=== PATIENT | male | born 1960 | race Two or more races ===

== ENCOUNTER → 2016-12-18 | Outpatient (CLI) | payer OTHER ==
[~2016-12-18] MED LIST: MIDAZOLAM HCL 5 MG/ML-1ML VIAL ONE; SODIUM CHLORIDE LOCK 0 ML ONE; diphenhdrAMINE HCL 50 MG/1 ML VL ONE; fentaNYL CITRATE 100 MCG/2 ML VL ONE
== END | disposition home or self-care (01) ==
LOC: Rad HDHVI 08:17
PROVIDERS: ATTEND Internal Medicine Cardiovascular Disease
DX: I48.0 Paroxysmal atrial fibrillation (principal); D64.9 Anemia, unspecified; I11.0 Hypertensive heart disease with heart failure; I50.9 Heart failure, unspecified; E83.42 Hypomagnesemia; R42 Dizziness and giddiness
CPT/HCPCS: 93306

== ENCOUNTER → 2019-02-17 | Outpatient (CLI) | payer OTHER ==
[~2019-02-17] MED LIST changes: +METOPROLOL SUCCINATE XL 50 MG TAB PO ONE; -MIDAZOLAM HCL 5 MG/ML-1ML VIAL ONE; +SODIUM CHLORIDE 0.9% 250 ML IV ONE; -SODIUM CHLORIDE LOCK 0 ML ONE; -diphenhdrAMINE HCL 50 MG/1 ML VL ONE; -fentaNYL CITRATE 100 MCG/2 ML VL ONE
[2019-02-17 16:55] VITALS: BP 127/86
--- NOTE | 2019-02-17 16:55 | NUR ---
EKG EKG COMPLETED SENT TO MD NEWSOME/ PT GIVEN METOPROLOL 50 MG PO GIVEN WITH NEW PRESCRIPTION CALLED IN TO JOSI DUARTE AND TAMMY NICE. EKG SHOWED AFIB. ELIQUIS ALSO GIVEN PTS HOME MED.
--- NOTE | 2019-02-17 16:55 | NUR ---
IV insertion IV access obtained, via clean sterile technique by inserting 18 gauge catheter at after 1 attempt(s). IV secured properly. No trauma to site. Patient tolerated procedure well.
--- NOTE | 2019-02-17 16:55 | NUR ---
CHF PT CAME THROUGH FRONT LOBBY COMPLAINING OF FAST HEART RATE/ A/O X 4 JUST LEFT THE GYM. DENIES CHEST PAIN MD NEWSOME UPDATED ORDERS RECEIVED AND NOTED.
[2019-02-17 18:05] VITALS: BP 119/89
--- NOTE | 2019-02-17 18:05 | NUR ---
STATUS REPEAT EKG DONE HR 138 PT FEELS BETTER POST 250 NS HYDRATION REVIEWED HOME MEDICATIONS, PT VERBALIZED UNDERSTANDING
--- NOTE | 2019-02-17 18:06 | NUR ---
Discharge Instructions See e-MAR for any mediations given with this visit. Patient education given on disease process. Patient verbalized understanding. Previous labs reviewed. Patient discharged in stable condition with after care instructions and follow up appointment. MEDICATIONS NS 250 IV METOPROLOL PO ELIQUIS PO PT INSTRUCTED TO HOLD FLOMAX THIS EVENING AND HOLD CIALIS ON SUNDAY UNTIL MD NEWSOME SEES PT AT HIS APPOINTMENT. PT VERBALIZED UNDERSTANDING.
== END | disposition home or self-care (01) ==
LOC: CHF HDHVI 16:58
PROVIDERS: ATTEND Internal Medicine Cardiovascular Disease
DX: E86.0 Dehydration (principal); I11.0 Hypertensive heart disease with heart failure; I50.9 Heart failure, unspecified; I48.0 Paroxysmal atrial fibrillation; E78.00 Pure hypercholesterolemia, unspecified; E11.9 Type 2 diabetes mellitus without complications; E03.9 Hypothyroidism, unspecified
CPT/HCPCS: 93005; 96360; G0463; J7050

== ENCOUNTER → 2019-04-21 | Outpatient (CLI) | payer OTHER ==
[~2019-04-21] MED LIST changes: +APIX5TAB PO; +DYA375C PO; -METOPROLOL SUCCINATE XL 50 MG TAB PO ONE; -SODIUM CHLORIDE 0.9% 250 ML IV ONE; +SOTA80TA PO; +TADA5TAB11 PO; +TAM04C PO; +TEMA15CA91 PO; +VORT10TA PO
[2019-04-21 10:52] VITALS: BP 123/75
--- NOTE | 2019-04-21 11:06 | NUR ---
Pre-Op Discharge Summary: See e-MAR for any medications given for this visit. Pre-op orders received and carried out per MD of EKG, LABS and chest xrays. Patient given a copy of EKG with instructions to go to [facility] out patient for further follow up care.
[2019-04-21 11:42] VITALS: BP 131/78
[2019-04-21 11:53] LABS: Basophils # (auto) 0 uL; Basophils % (auto) 0.6 % (0.0-2.0); Eosinophils # (auto) 0.1 uL; Eosinophils % (auto) 1.5 % (0.0-7.0); Hematocrit 50.6 % (41.0-53.0); Hemoglobin 17.4 g/dL (13.5-17.5); Lymphocytes % (auto) 29.7 % (10.0-50.0); Mean Corpuscular Hemoglobin 29.9 pg (28.0-32.0); Mean Corpuscular Hgb Conc. 34.4 g/dL (32.0-36.0); Mean Corpuscular Volume 86.8 fL (80.0-100.0); Monocytes # (auto) 0.5 uL; Monocytes % (auto) 8.1 % (0.0-12.0); Neutrophils # (auto) 4.1 uL; Neutrophils % (auto) 60.1 % (37.0-80.0); Nucleated Red Blood Cells % 0.3 %; Platelet Count (auto) 199 10^3/uL (140-450); Red Blood Cells 5.83 10^6/uL (4.5-5.90); White Blood Cell 6.7 10^3/uL (4.4-10.8)
[2019-04-21 12:10] LABS: INR 1.01 (0.9-1.15); Partial Thromboplastin Time 29.9 sec (23.64-32.05)
[2019-04-21 12:26] LABS: BUN/Creatinine Ratio 11.1; Calcium 8.7 mg/dL (8.5-10.1)
[2019-04-21 14:11] LABS: Potassium 2.9 mmol/L (3.5-5.1)
== END | disposition home or self-care (01) ==
LOC: Rad HDHVI 10:08
PROVIDERS: ATTEND Internal Medicine Cardiovascular Disease
DX: Z01.812 Encounter for preprocedural laboratory examination (principal)
CPT/HCPCS: 36415; 71046; 80048; 85025; 85610; 85730

== ENCOUNTER 2019-04-24 07:26 | Day surgery (SDC) | payer OTHER ==
[~2019-04-24] VITALS: Ht 180.3 cm; Wt 105.2 kg
[2019-04-24] MEDS ORDERED: LIDOCAINE 2%HCL (LOCAL ANESTH.) INJ 20ML MDV ONE (10:50)
[2019-04-24] MEDS ORDERED: IOHEXOL 350 MG/ML 100ML IJ ONE (10:50)
[2019-04-24] MEDS ORDERED: SODIUM CHL 0.9% 50 ML ONE (10:56)
[2019-04-24] MEDS ORDERED: fentaNYL CITRATE 100 MCG/2 ML VL ONE (10:56)
[2019-04-24] MEDS ORDERED: ANGIOMAX 250 MG VIAL IV ONE (10:56)
[2019-04-24] MEDS ORDERED: MIDAZOLAM HCL 1MG/1ML-2 ML VIAL ONE (10:56)
[2019-04-24] MEDS ORDERED: ONDANSETRON HCL 4 MG/2 ML VIAL IV PRN (13:00)
[2019-04-24] MEDS ORDERED: ACETAMINOPHEN 500 MG TAB PO PRN (13:00)
[2019-04-24] MEDS ORDERED: SODIUM CHL 0.9% 500 ML IV ONE (13:00)
[2019-04-24] MEDS ORDERED: HYDROcodone-ACET 5/325MG TAB PO PRN (13:00)
== END 2019-04-24 14:15 | disposition home or self-care (01) ==
LOC: CATH 07:26
PROVIDERS: ATTEND Internal Medicine Cardiovascular Disease
DX: R07.89 Other chest pain (principal); R06.02 Shortness of breath; I48.0 Paroxysmal atrial fibrillation; I10 Essential (primary) hypertension; Z79.899 Other long term (current) drug therapy
CPT/HCPCS: 93460; C1751; C1760; C1894; J1644; J2250; J3010; Q9967; 99152

== ENCOUNTER → 2019-08-25 | Outpatient (CLI) | payer OTHER | END | disposition home or self-care (01) | LOC: LAB 10:35 | PROVIDERS: ATTEND Internal Medicine Cardiovascular Disease | DX: E29.1 Testicular hypofunction (principal) | CPT/HCPCS: 36415; 84403 ==

== ENCOUNTER 2021-06-12 13:19 | Inpatient (IN) | payer OTHER ==
[~2021-06-12] VITALS: Ht 180.3 cm; Wt 110.9 kg
[~2021-06-12 13:19] MED LIST changes: -DYA375C PO; +TEMA15CA2 PO; -TEMA15CA91 PO; +TRIA37.56 PO
[2021-06-12] MEDS ORDERED: dilTIAZem 25 MG/5 ML VIAL IV ONE ×3 (13:42→18:00)
[2021-06-12] MEDS ORDERED: SODIUM CHLORIDE 0.9% 1,000 ML IV ONE (13:45)
[2021-06-12] MEDS ORDERED: ASPirin 81 mg TAB PO ONE (13:45)
[2021-06-12] MEDS ORDERED: SODIUM CHLORIDE 0.9% 1,000 ML IVB ONE (13:45)
[2021-06-12 14:04] LABS: Basophils # (auto) 0.1 10 ^3/uL (0-0.2); Basophils % (auto) 1.3 % (0.0-2.0); Eosinophils # (auto) 0.1 10 ^3/uL (0-0.8); Hematocrit 52.3 % (41.0-53.0); Hemoglobin 17.6 g/dL (13.5-17.5); Lymphocytes # (auto) 1.8 10 ^3/uL (0.4-5.4); Lymphocytes % (auto) 23.7 % (10.0-50.0); Mean Corpuscular Hemoglobin 29.9 pg (28.0-32.0); Mean Corpuscular Hgb Conc. 33.7 g/dL (32.0-36.0); Mean Corpuscular Volume 88.9 fL (80.0-100.0); Monocytes # (auto) 0.5 10 ^3/uL (0-1.3); Monocytes % (auto) 6.3 % (0.0-12.0); Neutrophils # (auto) 5.2 10 ^3/uL (1.6-8.6); Neutrophils % (auto) 67.7 % (37.0-80.0); Nucleated Red Blood Cells % 0.1 %; Red Blood Cells 5.88 10^6/uL (4.5-5.90); Red Cell Distribution Width 15.1 % (11.8-14.3); White Blood Cell 7.7 10^3/uL (4.4-10.8)
[2021-06-12 14:21] LABS: Albumin 3.9 g/dL (3.4-5.0); Calcium 9.3 mg/dL (8.5-10.1); Magnesium 2.7 mg/dL (1.6-2.6); Potassium 4.1 mmol/L (3.5-5.1)
[2021-06-12 14:26] LABS: Bilirubin, Total 1.1 mg/dL (0.2-1.0); Total Protein 7.2 g/dL (6.4-8.2)
[2021-06-12 14:40] LABS: INR 1.18 (0.9-1.15); Partial Thromboplastin Time 32.8 sec (23.6-33.0)
[2021-06-12 14:59] LABS: Urine Bacteria NONE SEEN /hpf (None Seen); Urine Blood Negative /uL (Negative); Urine WBC 1 /hpf (0 - 3)
[2021-06-12] MEDS ORDERED: IOHEXOL 350 MG/ML 100ML IJ ONE (15:43)
[2021-06-12] MEDS ORDERED: AMIODARONE HCL 150 MG in D5W 5% 100 ML IV ONE (16:00)
[2021-06-12] MEDS ORDERED: LORazepam 0.5 MG TAB PO ONE (16:00)
[2021-06-12] MEDS ORDERED: AMIODARONE HCL (50 MG/ ML) 3 ML VIAL IV ONE (16:05)
[2021-06-12] MEDS ORDERED: AMIODARONE 450mg/250ml AE 250 ML IV ONE (16:06)
[2021-06-12] MEDS ORDERED: AMIODARONE 450mg/250ml AE 250 ML IV SCH (16:15)
[2021-06-12] MEDS ORDERED: NITROGLYCERIN 0.4 MG SL TAB SL PRN (17:15)
[2021-06-12] MEDS ORDERED: MORPHINE SULFATE INJECTION 2 MG/ML SYRG IV PRN (17:15)
[2021-06-12] MEDS ORDERED: MORPHINE SULFATE 4 MG/ML SYR/VIAL IV PRN (17:15)
[2021-06-12] MEDS: SODIUM CHLORIDE 0.9% 1,000 ML IV SCH (17:49)
[2021-06-12] MEDS ORDERED: TAMSULOSIN HYDROCHLORIDE 0.4 MG CAP PO ONE (18:00)
[2021-06-12] MEDS: AMIODARONE 450mg/250ml AE 250 ML IV SCH (22:17)
[2021-06-12] MEDS: APIXABAN 5 MG TAB PO SCH (22:21)
[2021-06-13] MEDS ORDERED: AMIODARONE HCL 75 MG in D5W 5% 100 ML IV ONE ×2
[2021-06-13] MEDS ORDERED: AMIODARONE HCL (50 MG/ ML) 3 ML VIAL IV ONE (00:12)
[2021-06-13] MEDS: HYDROcodone-ACET 5/325MG TAB PO PRN ×2 (05:48→14:09)
[2021-06-13 05:49] LABS: Basophils # (auto) 0.1 10 ^3/uL (0-0.2); Basophils % (auto) 0.8 % (0.0-2.0); Eosinophils # (auto) 0.1 10 ^3/uL (0-0.8); Hematocrit 48.5 % (41.0-53.0); Hemoglobin 16.4 g/dL (13.5-17.5); Lymphocytes # (auto) 1.8 10 ^3/uL (0.4-5.4); Lymphocytes % (auto) 24.6 % (10.0-50.0); Mean Corpuscular Hgb Conc. 33.8 g/dL (32.0-36.0); Mean Corpuscular Volume 88.8 fL (80.0-100.0); Monocytes # (auto) 0.4 10 ^3/uL (0-1.3); Monocytes % (auto) 6.1 % (0.0-12.0); Neutrophils # (auto) 4.9 10 ^3/uL (1.6-8.6); Neutrophils % (auto) 67.5 % (37.0-80.0); Nucleated Red Blood Cells % 0.1 %; Red Blood Cells 5.46 10^6/uL (4.5-5.90); White Blood Cell 7.3 10^3/uL (4.4-10.8)
[2021-06-13 06:24] LABS: Albumin 3.5 g/dL (3.4-5.0); BUN/Creatinine Ratio 11.9; Bilirubin, Total 1.3 mg/dL (0.2-1.0); Calcium 8.7 mg/dL (8.5-10.1); Total Protein 6.5 g/dL (6.4-8.2)
[2021-06-13] MEDS: SOTALOL HCL 80 MG TAB PO SCH (09:35)
[2021-06-13] MEDS: APIXABAN 5 MG TAB PO SCH ×2 (09:35→21:22)
[2021-06-13] MEDS: SODIUM CHLORIDE 0.9% 1,000 ML IV SCH (09:55)
[2021-06-13] MEDS ORDERED: ENOXAPARIN SOD 40 MG/0.4 ML SYRINGE SC SCH (10:00)
[2021-06-13] MEDS ORDERED: NITROGLYCERIN 0.4 MG SL TAB SL PRN (11:00)
[2021-06-13] MEDS ORDERED: MORPHINE SULFATE INJECTION 2 MG/ML SYRG IV PRN (11:00)
[2021-06-13] MEDS ORDERED: SOTALOL HCL 80 MG TAB PO ONE (11:00)
[2021-06-13] MEDS: AMIODARONE 450mg/250ml AE 250 ML IV SCH (13:15)
[2021-06-13] MEDS ORDERED: METOPROLOL TARTRATE 50 MG TAB PO ONE (15:16)
[2021-06-13] MEDS: ACETAMINOPHEN 325 MG TAB PO PRN (19:05)
[2021-06-13 19:54] VITALS: BP 120/86
[2021-06-13 21:56] VITALS: BP 126/94
[2021-06-13] MEDS ORDERED: TEMAZEPAM 15 MG CAP PO PRN (23:45)
[2021-06-14] MEDS: SODIUM CHLORIDE 0.9% 1,000 ML IV SCH ×2 (02:35→19:15)
[2021-06-14 05:25] VITALS: BP 125/64
[2021-06-14 08:00] VITALS: BP 115/86
[2021-06-14 08:48] VITALS: BP 115/86
[2021-06-14] MEDS: SOTALOL HCL 80 MG TAB PO SCH ×3 (10:39→22:00)
[2021-06-14] MEDS: APIXABAN 5 MG TAB PO SCH ×2 (10:39→22:01)
[2021-06-14 13:00] VITALS: BP 113/70
[2021-06-14] MEDS: HYDROcodone-ACET 5/325MG TAB PO PRN (15:12)
[2021-06-14 17:00] VITALS: BP 112/77
[2021-06-14 22:00] VITALS: BP 138/107
[2021-06-14] MEDS: TAMSULOSIN HYDROCHLORIDE 0.4 MG CAP PO SCH (22:01)
[2021-06-14] MEDS: ACETAMINOPHEN 325 MG TAB PO PRN (23:22)
[2021-06-15 05:00] VITALS: BP 105/58
[2021-06-15 06:00] VITALS: BP 103/85
[2021-06-15 08:18] VITALS: BP 103/85
[2021-06-15] MEDS: ACETAMINOPHEN 325 MG TAB PO PRN (08:49)
[2021-06-15] MEDS: TAMSULOSIN HYDROCHLORIDE 0.4 MG CAP PO SCH (10:21)
[2021-06-15] MEDS: APIXABAN 5 MG TAB PO SCH (10:21)
[2021-06-15] MEDS: SOTALOL HCL 80 MG TAB PO SCH (10:22)
[2021-06-15 12:50] VITALS: BP 103/85
[2021-06-15] MEDS: SODIUM CHLORIDE 0.9% 1,000 ML IV SCH (12:54)
[2021-06-15 17:45] VITALS: BP 112/77
[2021-06-15 19:25] VITALS: BP 112/77
[2021-06-15] MEDS ORDERED: SOTA80TA PO ×2 (20:00→20:22)
== END 2021-06-15 21:00 | disposition home or self-care (01) | DRG 309 ==
LOC: ER 13:19 → TELE 17:07 → TELE-CENTR 06-13 18:36
PROVIDERS: ADMIT Internal Medicine; ATTEND Internal Medicine Cardiovascular Disease
DX: I48.91 Unspecified atrial fibrillation (principal); D68.59 Other primary thrombophilia; I47.1 Supraventricular tachycardia; F41.9 Anxiety disorder, unspecified; R79.89 Other specified abnormal findings of blood chemistry; Z20.822 Contact with and (suspected) exposure to COVID-19; I10 Essential (primary) hypertension; Z79.01 Long term (current) use of anticoagulants; Z79.899 Other long term (current) drug therapy
CPT/HCPCS: 36415; 71275; 80053; 81001; 83735; 83880; 84443; 84484; 85025; 85379; 85610; 85730; 93005; 93306; 96361; 96365; 96375; 96376; G0378; J7060

== ENCOUNTER 2021-06-17 09:20 | Emergency (ER) | payer OTHER ==
[~2021-06-17] VITALS: Ht 180.3 cm; Wt 107.0 kg
[2021-06-17] MEDS ORDERED: LACTATED RINGER'S 1,000 ML IV ONE (09:45)
[2021-06-17] MEDS ORDERED: dilTIAZem 25 MG/5 ML VIAL IV ONE ×2 (09:49→10:00)
[2021-06-17] MEDS ORDERED: dilTIAZem HCL 50 MG/10 ML VIAL IV ONE (09:49)
[2021-06-17] MEDS ORDERED: dilTIAZem 120MG ER CAP PO ONE (10:00)
[2021-06-17 10:27] LABS: Albumin 3.5 g/dL (3.4-5.0); Calcium 8.7 mg/dL (8.5-10.1); Magnesium 2.6 mg/dL (1.6-2.6); Potassium 4.4 mmol/L (3.5-5.1)
[2021-06-17 10:32] LABS: Bilirubin, Total 1.3 mg/dL (0.2-1.0); Total Protein 7.1 g/dL (6.4-8.2)
[2021-06-17 10:41] LABS: Basophils # (auto) 0.1 10 ^3/uL (0-0.2); Basophils % (auto) 1.1 % (0.0-2.0); Eosinophils # (auto) 0.1 10 ^3/uL (0-0.8); Eosinophils % (auto) 0.9 % (0.0-7.0); Hematocrit 51.8 % (41.0-53.0); Hemoglobin 17.1 g/dL (13.5-17.5); Lymphocytes # (auto) 1.6 10 ^3/uL (0.4-5.4); Lymphocytes % (auto) 20.3 % (10.0-50.0); Mean Corpuscular Hemoglobin 29.7 pg (28.0-32.0); Mean Corpuscular Hgb Conc. 33.1 g/dL (32.0-36.0); Mean Corpuscular Volume 89.9 fL (80.0-100.0); Monocytes # (auto) 0.3 10 ^3/uL (0-1.3); Monocytes % (auto) 3.9 % (0.0-12.0); Neutrophils # (auto) 5.8 10 ^3/uL (1.6-8.6); Neutrophils % (auto) 73.8 % (37.0-80.0); Nucleated Red Blood Cells % 0.2 %; Red Blood Cells 5.76 10^6/uL (4.5-5.90); Red Cell Distribution Width 14.9 % (11.8-14.3); White Blood Cell 7.9 10^3/uL (4.4-10.8)
[2021-06-17 10:57] LABS: INR 1.22 (0.9-1.15); Partial Thromboplastin Time 32.3 sec (23.6-33.0)
[2021-06-17] MEDS ORDERED: SOTALOL HCL 80 MG TAB PO ONE (12:45)
[2021-06-17 14:00] VITALS: BP 126/87
== END 2021-06-17 12:43 | disposition home or self-care (01) ==
LOC: ER 09:20
DX: I48.0 Paroxysmal atrial fibrillation (principal); I10 Essential (primary) hypertension; Z79.899 Other long term (current) drug therapy
CPT/HCPCS: 36415; 71045; 80053; 83735; 84484; 85025; 85610; 85730; 93005; 96361; 96374; 99285; J7030

== ENCOUNTER → 2021-06-20 | Outpatient (CLI) | payer OTHER ==
[~2021-06-20] MED LIST changes: +DIGOXIN (250MCG/ML) 2 ML AMPULE IV ONE; +DIGOXIN (250MCG/ML) 2 ML AMPULE ONE
[2021-06-20 15:27] VITALS: BP 133/85
[2021-06-20 16:38] VITALS: BP 152/96
[2021-06-20 17:15] VITALS: BP 138/87
== END | disposition home or self-care (01) ==
LOC: CHF HDHVI 15:29
PROVIDERS: ATTEND Internal Medicine Cardiovascular Disease
DX: I48.0 Paroxysmal atrial fibrillation (principal); I10 Essential (primary) hypertension; D68.59 Other primary thrombophilia; F41.9 Anxiety disorder, unspecified; Z79.01 Long term (current) use of anticoagulants; Z79.899 Other long term (current) drug therapy
CPT/HCPCS: 96374; G0463; J1160

== ENCOUNTER → 2021-06-24 | Outpatient (CLI) | payer OTHER ==
[~2021-06-24] MED LIST changes: -DIGOXIN (250MCG/ML) 2 ML AMPULE IV ONE; -DIGOXIN (250MCG/ML) 2 ML AMPULE ONE
[2021-06-24 11:35] VITALS: BP 119/78
[2021-06-24 12:03] VITALS: BP 100/80
== END | disposition home or self-care (01) ==
LOC: CHF HDHVI 11:28
PROVIDERS: ATTEND Internal Medicine Cardiovascular Disease
DX: I48.91 Unspecified atrial fibrillation (principal); I25.2 Old myocardial infarction; R94.31 Abnormal electrocardiogram [ECG] [EKG]; R53.83 Other fatigue; R06.02 Shortness of breath
CPT/HCPCS: 93005; G0463

== ENCOUNTER → 2021-06-28 | Outpatient (CLI) | payer OTHER ==
[2021-06-28 09:05] VITALS: BP 94/68
[2021-06-28 10:46] VITALS: BP 91/60
[2021-06-28 10:53] LABS: Eosinophils # (auto) 0.1 10 ^3/uL (0-0.8); Mean Corpuscular Hemoglobin 29.6 pg (28.0-32.0); Mean Corpuscular Hgb Conc. 33.5 g/dL (32.0-36.0); Monocytes # (auto) 0.5 10 ^3/uL (0-1.3); Neutrophils # (auto) 4.3 10 ^3/uL (1.6-8.6); White Blood Cell 6.7 10^3/uL (4.4-10.8)
[2021-06-28 10:55] LABS: Basophils # (auto) 0 10 ^3/uL (0-0.2); Basophils % (auto) 0.7 % (0.0-2.0); Eosinophils % (auto) 1.5 % (0.0-7.0); Hematocrit 52.7 % (41.0-53.0); Hemoglobin 17.7 g/dL (13.5-17.5); Lymphocytes # (auto) 1.8 10 ^3/uL (0.4-5.4); Lymphocytes % (auto) 26.6 % (10.0-50.0); Mean Corpuscular Volume 88.2 fL (80.0-100.0); Monocytes % (auto) 7.1 % (0.0-12.0); Neutrophils % (auto) 64.1 % (37.0-80.0); Nucleated Red Blood Cells % 0.1 %; Red Blood Cells 5.98 10^6/uL (4.5-5.90); Red Cell Distribution Width 15.3 % (11.8-14.3)
[2021-06-28 11:10] LABS: BUN/Creatinine Ratio 13.7; Calcium 8.6 mg/dL (8.5-10.1); Magnesium 2.5 mg/dL (1.6-2.6); Potassium 4.1 mmol/L (3.5-5.1)
[2021-06-28 11:25] LABS: INR 1.17 (0.9-1.15)
== END | disposition home or self-care (01) ==
LOC: CHF HDHVI 09:08
PROVIDERS: ATTEND Internal Medicine Cardiovascular Disease
DX: I48.91 Unspecified atrial fibrillation (principal); R06.02 Shortness of breath
CPT/HCPCS: 36415; 80048; 80162; 83735; 85025; 85610; 85730; 93005; G0463

== ENCOUNTER → 2021-07-01 | Outpatient (CLI) | payer OTHER ==
[2021-07-01 10:02] VITALS: BP 117/71
[2021-07-01 10:28] VITALS: BP 123/75
== END | disposition home or self-care (01) ==
LOC: CHF HDHVI 09:56
PROVIDERS: ATTEND Internal Medicine Cardiovascular Disease
DX: I48.91 Unspecified atrial fibrillation (principal)
CPT/HCPCS: G0463

== ENCOUNTER → 2021-07-04 | Outpatient (CLI) | payer OTHER ==
[2021-07-04 09:18] VITALS: BP 111/69
[2021-07-04 09:53] VITALS: BP 92/66
== END | disposition home or self-care (01) ==
LOC: CHF HDHVI 09:22
PROVIDERS: ATTEND Internal Medicine Cardiovascular Disease
DX: I50.23 Acute on chronic systolic (congestive) heart failure (principal)
CPT/HCPCS: 36415; 80162; G0463

== ENCOUNTER → 2021-07-14 | Outpatient (CLI) | payer OTHER ==
[~2021-07-14] MED LIST changes: +DIGO0.25 PO
[2021-07-14 08:25] VITALS: BP 117/76
[2021-07-14 08:31] VITALS: BP 108/81
[2021-07-14 11:38] LABS: Basophils # (auto) 0.1 10 ^3/uL (0-0.2); Eosinophils # (auto) 0.1 10 ^3/uL (0-0.8); Lymphocytes # (auto) 1.9 10 ^3/uL (0.4-5.4); Mean Corpuscular Volume 87.8 fL (80.0-100.0); Monocytes # (auto) 0.4 10 ^3/uL (0-1.3); White Blood Cell 5.4 10^3/uL (4.4-10.8)
[2021-07-14 11:40] LABS: Eosinophils % (auto) 2.2 % (0.0-7.0); Hematocrit 55.5 % (41.0-53.0); Hemoglobin 18.6 g/dL (13.5-17.5); Lymphocytes % (auto) 34.8 % (10.0-50.0); Mean Corpuscular Hemoglobin 29.5 pg (28.0-32.0); Mean Corpuscular Hgb Conc. 33.6 g/dL (32.0-36.0); Monocytes % (auto) 7.3 % (0.0-12.0); Neutrophils % (auto) 54.7 % (37.0-80.0); Nucleated Red Blood Cells % 0.9 %; Red Blood Cells 6.32 10^6/uL (4.5-5.90); Red Cell Distribution Width 14.8 % (11.8-14.3)
[2021-07-14 11:52] LABS: INR 1.16 (0.9-1.15); Partial Thromboplastin Time 30.6 sec (23.6-33.0)
[2021-07-14 12:03] LABS: Calcium 8.7 mg/dL (8.5-10.1); Potassium 3.9 mmol/L (3.5-5.1)
[2021-07-14 12:06] LABS: BUN/Creatinine Ratio 14.3
== END | disposition home or self-care (01) ==
LOC: Rad HDHVI 08:01
PROVIDERS: ATTEND Internal Medicine Cardiovascular Disease
DX: Z01.812 Encounter for preprocedural laboratory examination (principal); I48.91 Unspecified atrial fibrillation; R06.02 Shortness of breath
CPT/HCPCS: 36415; 80048; 85025; 85610; 85730; G0463

== ENCOUNTER 2021-07-19 12:09 | Day surgery (SDC) | payer OTHER ==
[~2021-07-19] VITALS: Ht 180.3 cm; Wt 105.5 kg
[2021-07-19] MEDS ORDERED: IOHEXOL 350 MG/ML 100ML IJ ONE (14:26)
[2021-07-19] MEDS ORDERED: LIDOCAINE 2%HCL (LOCAL ANESTH.) INJ 10ml MDV ONE ×2 (14:26→14:27)
[2021-07-19] MEDS ORDERED: ANGIOMAX 250 MG VIAL IV ONE (14:29)
[2021-07-19] MEDS ORDERED: MIDAZOLAM HCL 2MG/2ML 2ml VIAL (1mg/ml) ONE (14:29)
[2021-07-19] MEDS ORDERED: fentaNYL CITRATE 100 MCG/2 ML VL ONE (14:29)
[2021-07-19] MEDS ORDERED: SODIUM CHL 0.9% 0 ML ONE (14:29)
== END 2021-07-19 17:15 | disposition home or self-care (01) ==
LOC: CATH 12:09
PROVIDERS: ATTEND Internal Medicine Cardiovascular Disease
DX: R06.02 Shortness of breath (principal); I48.91 Unspecified atrial fibrillation; R06.09 Other forms of dyspnea; I10 Essential (primary) hypertension; R07.9 Chest pain, unspecified; J43.9 Emphysema, unspecified; F41.9 Anxiety disorder, unspecified; Z79.899 Other long term (current) drug therapy; Z20.822 Contact with and (suspected) exposure to COVID-19
CPT/HCPCS: 93458; C1760; C1894; J1644; J2001; J2250; J3010; Q9967; U0003; 99152; 99153

== ENCOUNTER 2021-09-07 08:28 | Inpatient (IN) | payer OTHER ==
[~2021-09-07] VITALS: Ht 180.3 cm; Wt 110.0 kg
[2021-09-07] MEDS ORDERED: SODIUM CHLORIDE 0.9% 1,000 ML IV ONE ×2 (08:45→10:00)
[2021-09-07 09:36] LABS: Basophils # (auto) 0.1 10 ^3/uL (0-0.2); Eosinophils # (auto) 0.1 10 ^3/uL (0-0.8); Eosinophils % (auto) 0.5 % (0.0-7.0)
[2021-09-07 09:40] LABS: Basophils % (auto) 0.8 % (0.0-2.0); Hematocrit 56.7 % (41.0-53.0); Hemoglobin 19.4 g/dL (13.5-17.5); Lymphocytes % (auto) 18.4 % (10.0-50.0); Mean Corpuscular Hemoglobin 30.3 pg (28.0-32.0); Mean Corpuscular Hgb Conc. 34.3 g/dL (32.0-36.0); Mean Corpuscular Volume 88.5 fL (80.0-100.0); Monocytes # (auto) 0.7 10 ^3/uL (0-1.3); Monocytes % (auto) 6.3 % (0.0-12.0); Neutrophils # (auto) 7.9 10 ^3/uL (1.6-8.6); Nucleated Red Blood Cells % 0.5 %; Red Blood Cells 6.41 10^6/uL (4.5-5.90); Red Cell Distribution Width 14.7 % (11.8-14.3); White Blood Cell 10.7 10^3/uL (4.4-10.8)
[2021-09-07 09:50] LABS: INR 1.25 (0.9-1.15); Partial Thromboplastin Time 33.4 sec (23.6-33.0)
[2021-09-07 09:57] LABS: Albumin 3.8 g/dL (3.4-5.0); Calcium 9.2 mg/dL (8.5-10.1); Potassium 3.2 mmol/L (3.5-5.1)
[2021-09-07 10:00] LABS: BUN/Creatinine Ratio 9.9; Bilirubin, Total 2.1 mg/dL (0.2-1.0); Total Protein 8.2 g/dL (6.4-8.2)
[2021-09-07] MEDS ORDERED: CALCIUM GLUC 1,000mg/50ml-NS 50 ML IV ONE (11:15)
[2021-09-07] MEDS ORDERED: dilTIAZem 25 MG/5 ML VIAL IV ONE (11:15)
[2021-09-07] MEDS ORDERED: SODIUM CHLORIDE 0.9% 500 ML IV ONE (12:00)
[2021-09-07] MEDS ORDERED: POTASSIUM EFFERVESENT TAB 25 MEQ PO ONE (13:45)
[2021-09-07] MEDS ORDERED: FLUTICASONE PROP NASAL SPR 0.05 % (50MCG) 16GM EACHNOSTRI ONE (20:45)
[2021-09-07] MEDS ORDERED: LEVOTHYROXINE SODIUM 25 MCG TAB PO ONE (20:45)
[2021-09-07] MEDS ORDERED: DIGOXIN 0.25 MG TAB PO ONE (20:45)
[2021-09-07] MEDS ORDERED: SOTALOL HCL 80 MG TAB PO ONE (21:30)
[2021-09-07] MEDS ORDERED: traMADol HCL 50 MG TAB PO ONE (22:00)
[2021-09-07 22:53] VITALS: BP 111/62
[2021-09-07] MEDS: SACUBITRIL-VALSARTAN 24mg/26mg TAB PO SCH (22:54)
[2021-09-07] MEDS: TAMSULOSIN HYDROCHLORIDE 0.4 MG CAP PO SCH (22:54)
[2021-09-07] MEDS: TEMAZEPAM 15 MG CAP PO PRN (22:55)
[2021-09-08 05:00] VITALS: BP 102/71
[2021-09-08 09:00] VITALS: BP 92/66
[2021-09-08] MEDS: SACUBITRIL-VALSARTAN 24mg/26mg TAB PO SCH ×2 (09:17→21:38)
[2021-09-08] MEDS: SOTALOL HCL 80 MG TAB PO SCH ×2 (09:17→20:28)
[2021-09-08] MEDS: APIXABAN 5 MG TAB PO SCH (10:01)
[2021-09-08] MEDS: TAMSULOSIN HYDROCHLORIDE 0.4 MG CAP PO SCH ×2 (10:02→22:30)
[2021-09-08] MEDS: HYDROcodone-ACET 10/325MG TAB PO PRN ×3 (10:55→22:30)
[2021-09-08 13:05] VITALS: BP 102/66
[2021-09-08 17:00] VITALS: BP 101/62
[2021-09-08 22:00] VITALS: BP 138/63
[2021-09-09] MEDS: HYDROcodone-ACET 10/325MG TAB PO PRN ×3 (03:49→20:42)
[2021-09-09 05:11] VITALS: BP 115/57
[2021-09-09 09:00] VITALS: BP 105/66
[2021-09-09] MEDS: APIXABAN 5 MG TAB PO SCH (09:48)
[2021-09-09] MEDS: SACUBITRIL-VALSARTAN 24mg/26mg TAB PO SCH ×2 (09:48→22:19)
[2021-09-09] MEDS: SOTALOL HCL 80 MG TAB PO SCH ×2 (09:50→22:19)
[2021-09-09] MEDS ORDERED: TAMSULOSIN HYDROCHLORIDE 0.4 MG CAP PO ONE (11:15)
[2021-09-09 13:00] VITALS: BP 114/80
[2021-09-09 17:00] VITALS: BP 92/67
[2021-09-09 22:00] VITALS: BP 117/67
[2021-09-09] MEDS: TAMSULOSIN HYDROCHLORIDE 0.4 MG CAP PO SCH (22:19)
[2021-09-10] MEDS: HYDROcodone-ACET 10/325MG TAB PO PRN ×3 (01:15→20:58)
[2021-09-10 05:00] VITALS: BP 102/69
[2021-09-10 08:52] VITALS: BP 120/57
[2021-09-10] MEDS: APIXABAN 5 MG TAB PO SCH (09:35)
[2021-09-10] MEDS: TAMSULOSIN HYDROCHLORIDE 0.4 MG CAP PO SCH ×2 (09:36→20:57)
[2021-09-10] MEDS: SACUBITRIL-VALSARTAN 24mg/26mg TAB PO SCH ×2 (09:36→20:58)
[2021-09-10] MEDS: SOTALOL HCL 80 MG TAB PO SCH ×3 (10:00→23:06)
[2021-09-10 12:00] VITALS: BP 99/56
[2021-09-10 17:35] VITALS: BP 101/63
[2021-09-10] MEDS ORDERED: SOTALOL HCL 80 MG TAB PO ONE (21:00)
[2021-09-10 22:00] VITALS: BP 103/70
[2021-09-11] MEDS: HYDROcodone-ACET 10/325MG TAB PO PRN ×2 (00:54→19:49)
[2021-09-11] MEDS: TEMAZEPAM 15 MG CAP PO PRN ×2 (00:57→22:35)
[2021-09-11 05:00] VITALS: BP 103/64
[2021-09-11 09:00] VITALS: BP 107/66
[2021-09-11] MEDS: TAMSULOSIN HYDROCHLORIDE 0.4 MG CAP PO SCH ×2 (10:00→21:57)
[2021-09-11] MEDS: SACUBITRIL-VALSARTAN 24mg/26mg TAB PO SCH ×2 (10:00→21:57)
[2021-09-11] MEDS: DIGOXIN 0.25 MG TAB PO SCH (10:00)
[2021-09-11] MEDS: APIXABAN 5 MG TAB PO SCH (10:00)
[2021-09-11] MEDS: ALPRAZolam 0.25 MG TAB PO SCH ×2 (10:00→21:58)
[2021-09-11] MEDS: SOTALOL HCL 80 MG TAB PO SCH ×2 (10:00→21:57)
[2021-09-11 13:00] VITALS: BP 100/69
[2021-09-11 17:00] VITALS: BP 110/74
[2021-09-11 22:00] VITALS: BP 115/67
[2021-09-12 05:00] VITALS: BP 97/64
[2021-09-12] MEDS ORDERED: dilTIAZem 25 MG/5 ML VIAL IV ONE (07:30)
[2021-09-12] MEDS: SOTALOL HCL 80 MG TAB PO SCH ×2 (08:55→22:44)
[2021-09-12] MEDS: SACUBITRIL-VALSARTAN 24mg/26mg TAB PO SCH ×2 (08:55→22:44)
[2021-09-12] MEDS: DIGOXIN 0.25 MG TAB PO SCH (08:56)
[2021-09-12] MEDS: TAMSULOSIN HYDROCHLORIDE 0.4 MG CAP PO SCH ×2 (08:56→22:44)
[2021-09-12] MEDS: APIXABAN 5 MG TAB PO SCH (08:56)
[2021-09-12] MEDS: ALPRAZolam 0.25 MG TAB PO SCH ×2 (08:56→22:44)
[2021-09-12 09:00] VITALS: BP 108/72
[2021-09-12] MEDS: HYDROcodone-ACET 10/325MG TAB PO PRN ×2 (11:33→23:03)
[2021-09-12 13:02] VITALS: BP 112/64
[2021-09-12 22:00] VITALS: BP 118/80
[2021-09-13] VITALS (14 sets, daily range): BP systolic 103–141; BP diastolic 60–91
[2021-09-13] MEDS: SOTALOL HCL 80 MG TAB PO SCH ×2 (10:07→22:02)
[2021-09-13] MEDS: APIXABAN 5 MG TAB PO SCH (10:08)
[2021-09-13] MEDS: TAMSULOSIN HYDROCHLORIDE 0.4 MG CAP PO SCH ×2 (10:08→22:05)
[2021-09-13] MEDS: SACUBITRIL-VALSARTAN 24mg/26mg TAB PO SCH ×2 (10:08→22:05)
[2021-09-13] MEDS: DIGOXIN 0.25 MG TAB PO SCH (10:08)
[2021-09-13] MEDS: ALPRAZolam 0.25 MG TAB PO SCH ×2 (10:09→22:06)
[2021-09-13 12:07] LABS: BUN/Creatinine Ratio 10.6; Calcium 8.4 mg/dL (8.5-10.1); Potassium 3.7 mmol/L (3.5-5.1)
[2021-09-13] MEDS: HYDROcodone-ACET 10/325MG TAB PO PRN (13:37)
[2021-09-13] MEDS ORDERED: MIDAZOLAM HCL 2MG/2ML 2ml VIAL (1mg/ml) IV ONE ×2 (15:15→15:20)
[2021-09-13] MEDS ORDERED: fentaNYL CITRATE 100 MCG/2 ML VL ONE (17:26)
[2021-09-13] MEDS ORDERED: fentaNYL CITRATE 100 MCG/2 ML VL IV ONE (17:45)
[2021-09-14 05:00] VITALS: BP 96/55
[2021-09-14 08:00] VITALS: BP_SYST 114; BP_SYST 137; BP_DIAS 79; BP_DIAS 81
[2021-09-14] MEDS: SACUBITRIL-VALSARTAN 24mg/26mg TAB PO SCH (10:23)
[2021-09-14] MEDS: SOTALOL HCL 80 MG TAB PO SCH (10:24)
[2021-09-14] MEDS: DIGOXIN 0.25 MG TAB PO SCH (10:24)
[2021-09-14] MEDS: APIXABAN 5 MG TAB PO SCH (10:24)
[2021-09-14] MEDS: TAMSULOSIN HYDROCHLORIDE 0.4 MG CAP PO SCH (10:24)
[2021-09-14] MEDS: ALPRAZolam 0.25 MG TAB PO SCH (10:25)
[2021-09-14 12:00] VITALS: BP 114/71
[2021-09-14 17:00] VITALS: BP 110/67
== END 2021-09-14 18:50 | disposition home or self-care (01) | DRG 309 ==
LOC: ER 08:28 → TELE 20:42 → TELE-WESTW 22:30
PROVIDERS: ADMIT Internal Medicine Cardiovascular Disease; ATTEND Internal Medicine Cardiovascular Disease
PROC: 5A2204Z Restoration of Cardiac Rhythm, Single (ICD-10-PCS; principal; 2021-09-14)
DX: I48.91 Unspecified atrial fibrillation (principal); D68.69 Other thrombophilia; D45 Polycythemia vera; N28.9 Disorder of kidney and ureter, unspecified; E87.6 Hypokalemia; Z20.822 Contact with and (suspected) exposure to COVID-19; E86.1 Hypovolemia; I10 Essential (primary) hypertension; Z79.01 Long term (current) use of anticoagulants
CPT/HCPCS: 36415; 71045; 80048; 80053; 80162; 84443; 84484; 85025; 85379; 85610; 85730; 87081; 93005; 96365; 96375; 99152; G0378; J2250

== ENCOUNTER → 2023-11-01 | Outpatient (CLI) | payer OTHER ==
[~2023-11-01] MED LIST changes: -TAM04C PO; +TAMS-35 PO; -TRIA37.56 PO; +TRIA37.587 PO
[2023-11-01 12:50] LABS: Urine Blood TRACE /uL (Negative); Urine Clarity Clear (Clear); Urine Color Yellow (Yellow); Urine Protein, UAD TRACE (Negative); Urine Specific Gravity 1.031 (1.001-1.035); Urine Urobilinogen Normal (Negative); Urine pH 5.5 (5.0-9.0)
[2023-11-01 12:54] LABS: Basophils # (auto) 0 10 ^3/uL (0-0.2); Basophils % (auto) 0.8 % (0.0-2.0); Eosinophils # (auto) 0.1 10 ^3/uL (0-0.8); Eosinophils % (auto) 1.6 % (0.0-7.0); Hematocrit 50.7 % (41.0-53.0); Hemoglobin 17.2 g/dL (13.5-17.5); Lymphocytes # (auto) 1.4 10 ^3/uL (0.4-5.4); Lymphocytes % (auto) 23.5 % (10.0-50.0); Mean Corpuscular Hemoglobin 30.3 pg (28.0-32.0); Mean Corpuscular Hgb Conc. 33.9 g/dL (32.0-36.0); Mean Corpuscular Volume 89.3 fL (80.0-100.0); Monocytes # (auto) 0.4 10 ^3/uL (0-1.3); Monocytes % (auto) 7.2 % (0.0-12.0); Neutrophils # (auto) 3.9 10 ^3/uL (1.6-8.6); Neutrophils % (auto) 66.9 % (37.0-80.0); Red Blood Cells 5.67 10^6/uL (4.5-5.90); Red Cell Distribution Width 14.4 % (11.8-14.3); White Blood Cell 5.8 10^3/uL (4.4-10.8)
[2023-11-01 13:35] LABS: Alanine Aminotransferase 36 U/L (7-40); Albumin 3.8 g/dL (3.2-4.8); Alkaline Phosphatase 74 U/L (46-116); Anion Gap 6 (5-15); Aspartate Aminotransferase 18 U/L (13-40); BUN/Creatinine Ratio 12.8 (10.0-20.0); Bilirubin, Direct 0.4 mg/dL (<0.3); Blood Urea Nitrogen 14 mg/dL (9-23); Calcium 9.1 mg/dL (8.7-10.4); Carbon Dioxide 29 mmol/L (20-30); Chloride 108 mmol/L (98-107); Cholesterol 134 mg/dL (< 200); Glucose 96 mg/dL (74-106); HDL Cholesterol 32 mg/dL (40-59); LDL Cholesterol 93 mg/dL (< 100); Potassium 3.6 mmol/L (3.5-5.1); Sodium 143 mmol/L (136-145); Total Protein 6.5 g/dL (5.7-8.2); Triglycerides 114 mg/dL (< 150)
== END | disposition home or self-care (01) ==
LOC: LAB 12:24
PROVIDERS: ATTEND Internal Medicine Cardiovascular Disease
DX: I10 Essential (primary) hypertension (principal); E11.9 Type 2 diabetes mellitus without complications; C61 Malignant neoplasm of prostate; D51.3 Other dietary vitamin B12 deficiency anemia; D64.9 Anemia, unspecified; R00.2 Palpitations; R53.1 Weakness; R30.0 Dysuria
CPT/HCPCS: 36415; 80048; 80061; 80076; 80162; 81003; 83036; 84153; 84154; 84403; 84443; 85025

== ENCOUNTER → 2023-11-07 | Outpatient (CLI) | payer OTHER ==
[~2023-11-07] VITALS: Ht 180.3 cm; Wt 105.2 kg
[~2023-11-07] MED LIST changes: +LORazepam 2MG/ML-1ML VIAL ONE
== END | disposition home or self-care (01) ==
LOC: Rad HDHVI 08:29
PROVIDERS: ATTEND Internal Medicine Cardiovascular Disease
DX: I11.9 Hypertensive heart disease without heart failure (principal); I48.0 Paroxysmal atrial fibrillation; R00.2 Palpitations; E78.00 Pure hypercholesterolemia, unspecified; Z82.49 Family history of ischemic heart disease and other diseases of the circulatory system
CPT/HCPCS: 78452; 93017; 96374; A9500; J2060

== ENCOUNTER 2024-06-10 13:55 | Inpatient (IN) | payer OTHER ==
[~2024-06-10] VITALS: Ht 182.9 cm; Wt 108.5 kg
[~2024-06-10 13:55] MED LIST changes: -LORazepam 2MG/ML-1ML VIAL ONE
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
--- NOTE | 2024-06-10 14:33 | DVH ---
CHEST RADIOGRAPH Indication: sob Technique: Single frontal view of the chest was obtained COMPARISON: CHEST PORTABLE on DOS: 09/07/21, CXRP on DOS: 09/07/21, CHEST PORTABLE on DOS: 06/17/21 FINDINGS: Lines and Tubes: None Lungs: Clear Pleura: No effusion. No pneumothorax. Cardiomediastinal contours: Unremarkable Bones: Unremarkable IMPRESSION: No acute disease.
[2024-06-10 14:57] LABS: Chloride 103 mmol/L (98-107); Potassium 4.2 mmol/L (3.5-5.1); Sodium 139 mmol/L (136-145)
--- NOTE | 2024-06-10 14:57 | ECG ---
[facility] Test Date: 2024-06-10 Test Time: 14:56:22 Pat Name: GOLD JOSEPH Department: ED Room: 0284T Gender: M Chip Washer: : 1960 Requested By: JUAN J VIZCARRA Order Number: [id number] Reading MD: Yfn Oneill Measurements Intervals Olin Rate: 137 P: 0 MT: 0 QRS: -67 QRSD: 97 T: 58 QT: 305 QTc: 461 Interpretive Statements Atrial fibrillation Left anterior fascicular block Abnormal R-wave progression, late transition Electronically Signed On 06-14-2024 17:45:39 PST by Yfn Oneill Please click the below link to view image of tracing.
[2024-06-10 14:58] LABS: Anion Gap 9 (5-15); Carbon Dioxide 27 mmol/L (20-31)
[2024-06-10 14:59] LABS: Basophils # (auto) 0 10 ^3/uL (0-0.2); Basophils % (auto) 0.7 % (0.0-2.0); Eosinophils # (auto) 0.1 10 ^3/uL (0-0.8); Eosinophils % (auto) 1.4 % (0.0-7.0); Hemoglobin 19.4 g/dL (13.5-17.5); Lymphocytes # (auto) 1.9 10 ^3/uL (0.4-5.4); Lymphocytes % (auto) 28.8 % (10.0-50.0); Mean Corpuscular Hemoglobin 30.1 pg (28.0-32.0); Mean Corpuscular Hgb Conc. 33.7 g/dL (32.0-36.0); Mean Corpuscular Volume 89.4 fL (80.0-100.0); Monocytes # (auto) 0.5 10 ^3/uL (0-1.3); Monocytes % (auto) 7.1 % (0.0-12.0); Neutrophils # (auto) 4.1 10 ^3/uL (1.6-8.6); Nucleated Red Blood Cells % 0.5 %; Platelet Count (auto) 218 10^3/uL (140-450); Red Blood Cells 6.44 10^6/uL (4.5-5.90); Red Cell Distribution Width 14.3 % (11.8-14.3); White Blood Cell 6.6 10^3/uL (4.4-10.8)
[2024-06-10 15:01] LABS: Hematocrit 57.6 % (41.0-53.0)
[2024-06-10 15:03] LABS: BUN/Creatinine Ratio 11.1 (10.0-20.0); Blood Urea Nitrogen 15 mg/dL (9-23)
[2024-06-10 15:06] LABS: Calcium 10.6 mg/dL (8.7-10.4); Glucose 133 mg/dL (74-106)
[2024-06-10 17:15] VITALS: PULSE 140
[2024-06-10 19:35] VITALS: PULSE 138; RESP 9
[2024-06-10] MEDS: METOPROLOL TARTRATE 1MG/1ML-5ML VIAL IV ONE (20:37)
[2024-06-10] MEDS: SODIUM CHLORIDE 0.9% 1,000 ML IV ONE (20:48)
[2024-06-10] MEDS ORDERED: NITROGLYCERIN 0.4 MG SL TAB SL PRN (21:30)
[2024-06-10] MEDS ORDERED: ACETAMINOPHEN 325 MG TAB PO PRN (21:30)
[2024-06-10] MEDS ORDERED: MORPHINE SULFATE INJ 2 MG/ml SYRG IV PRN (21:30)
[2024-06-10] MEDS: SODIUM CHLORIDE 0.9% 1,000 ML IV SCH (21:30)
[2024-06-10 22:20] LABS: Albumin 4.1 g/dL (3.2-4.8); Alkaline Phosphatase 75 U/L (46-116); Anion Gap 7 (5-15); Aspartate Aminotransferase 38 U/L (13-40); BUN/Creatinine Ratio 9.9 (10.0-20.0); Bilirubin, Total 0.9 mg/dL (0.2-1.0); Blood Urea Nitrogen 13 mg/dL (9-23); Calcium 9.4 mg/dL (8.7-10.4); Carbon Dioxide 27 mmol/L (20-31); Magnesium 2.1 mg/dL (1.6-2.6); Potassium 3.9 mmol/L (3.5-5.1); Sodium 142 mmol/L (136-145); Total Protein 6.8 g/dL (5.7-8.2)
[2024-06-10 22:24] LABS: Alanine Aminotransferase 47 U/L (7-40); Blood Alcohol < 3.0 mg/dL (<10); Chloride 108 mmol/L (98-107); Glucose 122 mg/dL (74-106)
[2024-06-10] MEDS: SODIUM CHLOR 0.9% PF (SALINE LOCK) 10ML VIAL/SYR IV SCH (22:34)
[2024-06-10] MEDS: APIXABAN 5 MG TAB PO SCH (22:34)
[2024-06-10] MEDS: TAMSULOSIN HYDROCHLORIDE 0.4 MG CAP PO SCH (22:34)
[2024-06-10 23:16] LABS: Urine Bacteria None Seen /hpf (None Seen)
[2024-06-10 23:20] LABS: INR 1.12 (0.9-1.15); Partial Thromboplastin Time 28.2 SEC (24.5-34.5); Prothrombin Time 11.7 sec (9.3-11.8)
--- NOTE | 2024-06-10 23:28 | DVHHPRES ---
History of Present Illness Resident Creating Document: NILAY TREVINO RESIDENT History of Present Illness GOLD JOSEPH JR is a 63-year-old male with PMH of AFib and HTN presented to the ED with the chief complaints of left-sided chest pain and elevated blood pressure on the day of admission. Patient reported he started having left-sided chest pain which is sharp started for a.m. in the moaning with no aggravating or relieving factors and no radiation but patient reported he felt like he is going to pass out. Patient also reported mild shortness of breath which is on and off with the no aggravating or relieving factors. Patient reported he is following with Dr. Laura for AFib. Patient also reported mild dizziness and generalized weakness. On my assessment patient denies fever, nausea, vomiting, chest pain, diaphoresis, and other acute associated symptoms PMH: AFib on Eliquis, HTN, BPH PSH: Angiogram Family history: Reviewed, noncontributory Social history: Lives alone. Denies smoking, alcohol and other drug abuse Allergies: No known allergies Review of Systems Constitutional: Yes: Weakness Eyes: No: Pain, Vision change, Conjunctivae inflammation, Eyelid inflammation, Other, Redness ENT: No: Ear pain, Ear discharge, Nose pain, Nose discharge, Nose congestion, Mouth pain, Mouth swelling, Throat pain, Throat swelling, Other Respiratory: Shortness of breath; No: Cough, Dry, SOB with excertion, Wheezing, Hemoptysis, Pleuritic Pain, Sputum, Wheezing, Other Cardiovascular: Chest Pain, Lt Headedness Genitourinary: No Dysuria, No Frequency, No Incontinence, No Hematuria, No Retention, No Other Musculoskeletal: No: other, neck pain, shoulder pain, arm pain, back pain, hand pain, leg pain, foot pain Skin: No: Rash, Lesions, Jaundice, Bruising, Other Neurological: No: Weakness, Numbness, Incoordination, Change in speech, Confusion, Seizures, Other Allergies: Coded Allergies: NO KNOWN ALLERGIES (Unverified , 04/21/19) Medications Current Medications Medications Dose Ordered Sig/Manuel Route Start Time Stop Time Status Last Admin Dose Admin Sodium Chloride 10 ml Q8HR IV 06/10/24 22:00 06/10/24 22:34 10 ML Sodium Chloride 1,000 ml @ 120 mls/hr Q8H20M IV 06/10/24 21:30 06/10/24 21:30 120 MLS/HR Acetaminophen 650 mg Q6HP PRN PO 06/10/24 21:30 Morphine Sulfate 2 mg Q4HPRN PRN IV 06/10/24 21:30 Nitroglycerin 0.4 mg Q5MINP PRN SL 06/10/24 21:30 Morphine Sulfate 2 mg Q30M PRN IV 06/10/24 21:30 Apixaban 5 mg BID PO 06/10/24 22:00 06/10/24 22:34 5 MG Tamsulosin HCl 0.4 mg BID PO 06/10/24 22:00 06/10/24 22:34 0.4 MG Digoxin 0.25 mg DAILY PO 06/11/24 10:00 Triamterene/HCTZ 1 cap DAILY PO 06/11/24 10:00 Exam Vital Signs Vital Signs Date Time Temp Pulse Resp B/P (MAP) Pulse Ox O2 Delivery O2 Flow Rate FiO2 06/10/24 23:00 90 17 138/82 (100) 93 06/10/24 19:35 Room Air* 0 21 06/10/24 19:34 98.1 98.1 Exam General Appearance: Alert, Oriented X3, Cooperative, Not in acute distress HEENT: Atraumatic, Mucous membranes moist/pink Respiratory: Clear to auscultation, Normal air movement, No added sounds Cardiovascular: Irregularly irregular pulse, Normal S1, Normal S2, No murmurs Abdominal: Active bowel sounds, Soft, no distention, no tenderness Extremities: No edema, Normal pulses, No tenderness/swelling Skin: No Significant rash, except past surgical scars Neuro: Normal speech, sensorimotor deficits none Psych/Mental Status: Mental status NL, Mood NL Nurse was there as sharperone during examination Labs/Xrays Labs Test 06/10/24 22:53 06/10/24 21:51 06/10/24 14:25 Range/Units Prothrombin Time 11.7 9.3-11.8 sec Prothrombin Time INR 1.12 0.9-1.15 Activated Partial Thromboplast Time 28.2 24.5-34.5 SEC D-Dimer, Quantitative 0.40 0.0-0.49 mg/L FEU Sodium Level 142 136-145 mmol/L Potassium Level 3.9 3.5-5.1 mmol/L Chloride Level 108 H 98-107 mmol/L Carbon Dioxide Level 27 20-31 mmol/L Anion Gap 7 5-15 Blood Urea Nitrogen 13 9-23 mg/dL Creatinine 1.31 H 0.700-1.30 mg/dL Glomerular Filtration Rate Calc 61 >90 mL/min BUN/Creatinine Ratio 9.9 L 10.0-20.0 Serum Glucose 122 H 74-106 mg/dL Lactic Acid Level 1.3 0.4-2.0 mmol/L Calcium Level 9.4 8.7-10.4 mg/dL Magnesium Level 2.1 1.6-2.6 mg/dL Total Bilirubin 0.9 0.2-1.0 mg/dL Aspartate Amino Transferase (AST) 38 13-40 U/L Alanine Aminotransferase (ALT) 47 H 7-40 U/L Alkaline Phosphatase 75 46-116 U/L Total Protein 6.8 5.7-8.2 g/dL Albumin 4.1 3.2-4.8 g/dL Thyroid Stimulating Hormone (TSH) 0.01 L 0.55-4.78 uIU/mL Plasma/Serum Blood Alcohol < 3.0 <10 mg/dL White Blood Count 6.6 4.4-10.8 10^3/uL Red Blood Count 6.44 H 4.5-5.90 10^6/uL Hemoglobin 19.4 H 13.5-17.5 g/dL Hematocrit 57.6 H 41.0-53.0 % Mean Corpuscular Volume 89.4 80.0-100.0 fL Mean Corpuscular Hemoglobin 30.1 28.0-32.0 pg Mean Corpuscular Hemoglobin Concent 33.7 32.0-36.0 g/dL Red Cell Distribution Width 14.3 11.8-14.3 % Platelet Count 218 140-450 10^3/uL Mean Platelet Volume 9.3 6.9-10.8 fL Neutrophils (%) (Auto) 62.0 37.0-80.0 % Lymphocytes (%) (Auto) 28.8 10.0-50.0 % Monocytes (%) (Auto) 7.1 0.0-12.0 % Eosinophils (%) (Auto) 1.4 0.0-7.0 % Basophils (%) (Auto) 0.7 0.0-2.0 % Neutrophils # (Auto) 4.1 1.6-8.6 10 ^3/uL Lymphocytes # (Auto) 1.9 0.4-5.4 10 ^3/uL Monocytes # (Auto) 0.5 0-1.3 10 ^3/uL Eosinophils # (Auto) 0.1 0-0.8 10 ^3/uL Basophils # (Auto) 0 0-0.2 10 ^3/uL Nucleated Red Blood Cells 0.5 % B-Type Natriuretic Peptide 164.39 0-100 pg/mL Assessment/Plan Assessment/Plan # R/o ACS -reviewed EKG showed no ST changes but afib - troponins were negative -chest pain protocol ordered # Afib RVR and secondary hypercoagulable state -afib likely due to underlying hyperthyroididsm - monitoring on telemetry - EKG showed a fib with RVR - rate control with Metoprolol tartare 25 bid - Consult dr Laura -resume Eliquis 5 mg # Hyperthyroidism - elevated t3 qnd t4 # Acute complicated UTI - evident on urinalysis - ordered urine bacterial culture - currently giving Rocephin # BPH -Flomax No GI PPX Eliquis Cardiac diet Goals of care discussed with the patient for more than 27 minutes: Full code status Case discussed with Dr. Walter, patient and RN Plan discussed with: Patient My Orders Orders - NILAY TREVINO RESIDENT Procedure Category Date Status Time Admit ADMIT 06/10/24 Transmitted 21:29 Allergies BRENDEN 06/10/24 In Process 21:29 Code Status CODE 06/10/24 Transmitted 21:29 Sodium Chloride Lock PHA 06/10/24 In Process (Saline Lock Ns) 22:00 Sodium Chloride 0.9% PHA 06/10/24 In Process 21:30 Complete Blood Count LAB 06/11/24 Verified 04:00 Comprehensive LAB 06/11/24 Verified Metabolic Panel 04:00 Cardiac DIET 06/11/24 Transmitted Diet-2gna,Lofat,Lochol Breakfast Condition: Stable BRENDEN 06/10/24 In Process 21:29 Acetaminophen Tablet PHA 06/10/24 In Process (Tylenol Tablet) 21:30 Morphine Sulfate PHA 06/10/24 In Process Injection 21:30 Nitroglycerin PHA 06/10/24 In Process Sublingual (Ntrostat 21:30 Morphine Sulfate PHA 06/10/24 In Process Injection 21:30 Oxygen By Nasal RT 06/10/24 Transmitted Cannula 21:29 Stat Ekg For Chest BRENDEN 06/10/24 In Process Pain 21:29 Notify Of Changes BRENDEN 06/10/24 In Process From Base 21:29 Tap Grinder For BRENDEN 06/10/24 In Process 24 Hours 21:29 Emergency Dysrhythmia BRENDEN 06/10/24 In Process Protocol 21:29 Rhythm Strips Once BRENDEN 06/10/24 In Process Every Shift 21:29 Covid19 Antigen Hannah LAB 06/10/24 In Process Drug Screen LAB 06/10/24 In Process 21:29 Rapid Influenza A&B LAB 06/10/24 In Process 21:29 PTPTT LAB 06/10/24 In Process 21:29 Urinalysis LAB 06/10/24 In Process 21:29 Apixaban (Eliquis) PHA 06/10/24 In Process 22:00 Tamsulosin PHA 06/10/24 In Process Hydrochloride (Flomax) 22:00 Digoxin Tablet PHA 06/11/24 In Process (Lanoxin Tablet) 10:00 Triamterene/Hctz PHA 06/11/24 In Process (Dyazide 37.5/25mg 10:00 D-Dimer LAB 06/10/24 In Process 21:29 Troponin-I Hs LAB 06/10/24 In Process 23:21 Date of Service: Jun 10, 2024 Billing Provider: DIEGO WALTER MD Common Visit Codes: 91003-GKLUAQL INP/OBS CARE (HIGH) Secondary Visit Codes: [id number] CARE PLAN 30 MINUTES NILAY TREVINO RESIDENT Jun 10, 2024 23:28 DIEGO WALTER MD Jun 11, 2024 18:35
[2024-06-10 23:33] LABS: Urine Blood Negative /uL (Negative); Urine Clarity Clear (Clear); Urine Color Yellow (Yellow); Urine Mucus FEW (None Seen); Urine Protein, UAD TRACE (Negative); Urine Squamous Epithelial Cell FEW /hpf (<5); Urine Urobilinogen Normal (Negative); Urine WBC 9 /HPF (0-3)
[2024-06-10 23:56] LABS: Amphetamine Screen, Urine Neg (NEGATIVE); Barbiturate Scree,Urine Neg (NEGATIVE); Benzodiazephine Screen, Urine Neg (NEGATIVE); Cannabinoid Screen, Urine Neg (NEGATIVE); Cocaine Screen, Urine Neg (NEGATIVE); Opiate Scree,Urine Neg (NEGATIVE); Phencyclidine Screen, Urine Neg (NEGATIVE)
[2024-06-11] VITALS (8 sets, daily range): BP systolic 109–124; BP diastolic 82–86; PULSE 67–163; RESP 12–20; TEMP 98–98.3; O2SAT 91–98
[2024-06-11 00:05] LABS: Rapid Influenza A Negative (Negative); Rapid Influenza B Negative (Negative)
[2024-06-11 00:06] LABS: COVID19 ANTIGEN SOFIA FIA NEGATIVE (NEGATIVE)
[2024-06-11] MEDS: MORPHINE SULFATE INJ 2 MG/ml SYRG IV PRN (01:26)
[2024-06-11 07:00] LABS: Basophils # (auto) 0.1 10 ^3/uL (0-0.2); Basophils % (auto) 0.8 % (0.0-2.0); Eosinophils # (auto) 0.1 10 ^3/uL (0-0.8); Eosinophils % (auto) 1.8 % (0.0-7.0); Hematocrit 50.2 % (41.0-53.0); Hemoglobin 17.2 g/dL (13.5-17.5); Lymphocytes # (auto) 2.2 10 ^3/uL (0.4-5.4); Lymphocytes % (auto) 31.1 % (10.0-50.0); Mean Corpuscular Hemoglobin 30.7 pg (28.0-32.0); Mean Corpuscular Hgb Conc. 34.4 g/dL (32.0-36.0); Mean Corpuscular Volume 89.3 fL (80.0-100.0); Monocytes # (auto) 0.6 10 ^3/uL (0-1.3); Monocytes % (auto) 8.9 % (0.0-12.0); Neutrophils # (auto) 4.1 10 ^3/uL (1.6-8.6); Neutrophils % (auto) 57.4 % (37.0-80.0); Nucleated Red Blood Cells % 0.3 %; Platelet Count (auto) 180 10^3/uL (140-450); Red Blood Cells 5.62 10^6/uL (4.5-5.90); Red Cell Distribution Width 14.4 % (11.8-14.3); White Blood Cell 7.2 10^3/uL (4.4-10.8)
[2024-06-11 07:18] LABS: Alkaline Phosphatase 65 U/L (46-116); Anion Gap 11 (5-15); BUN/Creatinine Ratio 12.8 (10.0-20.0); Blood Urea Nitrogen 15 mg/dL (9-23); Calcium 9.4 mg/dL (8.7-10.4); Carbon Dioxide 26 mmol/L (20-31); Chloride 103 mmol/L (98-107); Glucose 93 mg/dL (74-106); Potassium 3.7 mmol/L (3.5-5.1); Sodium 140 mmol/L (136-145); Total Protein 6.5 g/dL (5.7-8.2)
[2024-06-11 07:19] LABS: Aspartate Aminotransferase 31 U/L (13-40)
[2024-06-11 07:20] LABS: Alanine Aminotransferase 42 U/L (7-40); Bilirubin, Total 1.3 mg/dL (0.2-1.0); Free T4 (Free Thyroxine) 3.54 ng/dL (0.89-1.76); T3 Total 2.2 ng/mL (0.60-1.81)
[2024-06-11] MEDS: methIMAzole 5 MG TAB PO SCH (08:43)
[2024-06-11] MEDS: cefTRIAXone 1GM/50ML D5W 50 ML IV SCH (08:43)
[2024-06-11] MEDS: METOPROLOL TARTRATE 25 MG TAB PO SCH (10:00)
[2024-06-11] MEDS: TRIAMTERENE/HCTZ 37.5/25 MG CAP/TAB PO SCH (10:39)
[2024-06-11] MEDS: DIGOXIN 0.125 MG TAB PO SCH (10:40)
--- NOTE | 2024-06-11 13:34 | DVHPN2 ---
Progress Note - Dictate Date Seen: Jun 11, 2024 Medical Necessity Reason Pt with a Central, PICC or Fol: No Subjective PT WITH WITH HX OF AFIB NOW WITH RVR HYPERTHYROIDISM BPH TROPONIN NEGATIVE BNP NEGATIVE vital signs Vital Sign Date Time Temp Pulse Resp B/P (MAP) Pulse Ox O2 Delivery O2 Flow Rate FiO2 06/11/24 10:40 121 06/11/24 10:39 96/68 06/11/24 08:28 12 97 06/11/24 07:45 Room Air* 0 21 06/10/24 19:34 98.1 98.1 Total Intake and Output 06/10/24 06/10/24 06/11/24 15:00 23:00 07:00 Intake Total 1120 ml Balance 1120 ml medications Current Medications Medications Dose Ordered Sig/Manuel Route Start Time Stop Time Status Last Admin Dose Admin Sodium Chloride 10 ml Q8HR IV 06/10/24 22:00 06/11/24 06:20 10 ML Acetaminophen 650 mg Q6HP PRN PO 06/10/24 21:30 Morphine Sulfate 2 mg Q4HPRN PRN IV 06/10/24 21:30 06/11/24 01:26 2 MG Nitroglycerin 0.4 mg Q5MINP PRN SL 06/10/24 21:30 Morphine Sulfate 2 mg Q30M PRN IV 06/10/24 21:30 Apixaban 5 mg BID PO 06/10/24 22:00 06/11/24 11:06 5 MG Tamsulosin HCl 0.4 mg BID PO 06/10/24 22:00 06/11/24 11:06 0.4 MG Digoxin 0.25 mg DAILY PO 06/11/24 10:00 06/11/24 10:40 0.25 MG Triamterene/HCTZ 1 cap DAILY PO 06/11/24 10:00 06/11/24 10:39 1 CAP Metoprolol Tartrate 25 mg BID PO 06/11/24 10:00 Ceftriaxone Sodium 50 ml @ 100 mls/hr DAILY@09 IV 06/11/24 09:00 06/11/24 08:43 100 MLS/HR Methimazole 10 mg Q8HR PO 06/11/24 08:15 06/11/24 08:43 10 MG laboratory and microbiology Laboratory Tests 06/11/24 05:18 Test 06/11/24 05:18 Range/Units Serum Glucose 93 74-106 mg/dL Problem List HX OF AFIB NOW WITH RVR HYPERTHYROIDISM BPH TROPONIN NEGATIVE BNP NEGATIVE Assessment/Plan AGREE WITH METHIMAZOLE TITRATE BETA ANNA DC DIG USE METOPROL SUCCINATE NOT TARTRATE Plan discussed with: Patient Critical Care Time(min): 35 JEROD LARSEN MD Jun 11, 2024 13:33
[2024-06-11] MEDS ORDERED: TRIA50CA43 PO (16:54)
[2024-06-11] MEDS ORDERED: DRON400T PO (16:54)
[2024-06-11] MEDS: SODIUM CHLORIDE 0.9% 1,000 ML IV SCH (17:32)
--- NOTE | 2024-06-11 17:42 | DVHPN2 ---
Subjective Seen and examined at bedside, still having palpations. Started Methimazole. Changes from previous H/P or p: No Changes Eyes: No Pain, No Vision change, No Conjunctivae inflammation, No Eyelid inflammation, No Other, No Redness ENT: No Ear pain, No Ear discharge, No Nose pain, No Nose discharge, No Nose congestion, No Mouth pain, No Mouth swelling, No Throat pain, No Throat swelling, No Other Cardiovascular: No Chest Pain, No Palpitations, No Orthopnea, No Paroxysmal Noc. Dyspnea, No Edema, No Lt Headedness, No Other Respiratory: No Cough, No Dry, No Shortness of breath, No SOB with excertion, No Wheezing, No Hemoptysis, No Pleuritic Pain, No Sputum, No Other Genitourinary: No Dysuria, No Frequency, No Incontinence, No Hematuria, No Retention, No Other Musculoskeletal: No other, No neck pain, No shoulder pain, No arm pain, No back pain, No hand pain, No leg pain, No foot pain Skin: No Rash, No Lesions, No Jaundice, No Bruising, No Other Objective Vitals Vital Signs Date Time Temp Pulse Resp B/P (MAP) Pulse Ox O2 Delivery O2 Flow Rate FiO2 06/11/24 17:00 98.3 104 18 124/85 (98) 98 98.3 06/11/24 07:45 Room Air* 0 21 Intake/Output Intake and Output 06/11/24 07:00 Intake Total 1120 ml Balance 1120 ml IV Total 1120 ml Exam Gen: in bed NAD Cvs: Tachycardic Resp: BLAE Abd: Soft, NT 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 Operator: 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 x 4 Medications Current Medications Medications Dose Ordered Sig/Manuel Route Start Time Stop Time Status Last Admin Dose Admin Sodium Chloride 10 ml Q8HR IV 06/10/24 22:00 06/11/24 16:55 10 ML Acetaminophen 650 mg Q6HP PRN PO 06/10/24 21:30 Morphine Sulfate 2 mg Q4HPRN PRN IV 06/10/24 21:30 06/11/24 01:26 2 MG Nitroglycerin 0.4 mg Q5MINP PRN SL 06/10/24 21:30 Morphine Sulfate 2 mg Q30M PRN IV 06/10/24 21:30 Apixaban 5 mg BID PO 06/10/24 22:00 06/11/24 11:06 5 MG Tamsulosin HCl 0.4 mg BID PO 06/10/24 22:00 06/11/24 11:06 0.4 MG Digoxin 0.25 mg DAILY PO 06/11/24 10:00 06/11/24 10:40 0.25 MG Triamterene/HCTZ 1 cap DAILY PO 06/11/24 10:00 06/11/24 10:39 1 CAP Ceftriaxone Sodium 50 ml @ 100 mls/hr DAILY@09 IV 06/11/24 09:00 06/11/24 08:43 100 MLS/HR Methimazole 10 mg Q8HR PO 06/11/24 08:15 06/11/24 16:57 10 MG Metoprolol Succinate 50 mg BID PO 06/11/24 22:00 Sodium Chloride 1,000 ml @ 100 mls/hr Q10H IV 06/11/24 13:30 Laboratory Results Laboratory Tests 06/11/24 05:18 Chemistry Test 06/10/24 21:51 06/11/24 05:18 Albumin 4.1 g/dL (3.2-4.8) 4.0 g/dL (3.2-4.8) Calcium Level 9.4 mg/dL (8.7-10.4) 9.4 mg/dL (8.7-10.4) Magnesium Level 2.1 mg/dL (1.6-2.6) Total Protein 6.8 g/dL (5.7-8.2) 6.5 g/dL (5.7-8.2) Coagulation Test 06/10/24 21:51 Prothrombin Time 11.7 sec (9.3-11.8) Prothrombin Time INR 1.12 (0.9-1.15) Activated Partial Thromboplast Time 28.2 SEC (24.5-34.5) D-Dimer, Quantitative 0.40 mg/L FEU (0.0-0.49) LFT Test 06/10/24 21:51 06/11/24 05:18 Alanine Aminotransferase (ALT) 47 U/L (7-40) H 42 U/L (7-40) H Alkaline Phosphatase 75 U/L (46-116) 65 U/L (46-116) Aspartate Amino Transferase (AST) 38 U/L (13-40) 31 U/L (13-40) Total Bilirubin 0.9 mg/dL (0.2-1.0) 1.3 mg/dL (0.2-1.0) H HgA1c, TSH Test 06/10/24 21:51 Thyroid Stimulating Hormone (TSH) 0.01 uIU/mL (0.55-4.78) L Urinalysis Test 06/10/24 22:53 Urine Color Yellow (Yellow) Urine Clarity Clear (Clear) Urine pH 5.0 (5.0-9.0) Urine Specific [place] 1.020 (1.001-1.035) Urine Protein Trace (Negative) H Urine Ketones Negative (Negative) Urine Blood Negative /uL (Negative) Urine Nitrite Negative (Negative) Urine Bilirubin Negative (Negative) Urine Urobilinogen Normal mg/dL (Negative) Urine Leukocyte Esterase 1+ /uL (Negative) Urine RBC 1 /hpf (0 - 3) Urine Microscopic WBC 9 /HPF (0-3) H Urine Squamous Epithelial Cells Few /hpf (<5) Urine Bacteria None seen /hpf (None Seen) Urine Granular Casts Few /lpf (0) Urine Mucus Few (None Seen) Urine Glucose Normal mg/dL (Normal) Assessment/Plan Assessment/Plan # Chest Pain R/o ACS -reviewed EKG showed no ST changes but afib -troponins were negative -chest pain protocol ordered # AFib RVR and secondary hypercoagulable state - afib likely due to underlying hyperthyroididsm - monitoring on telemetry - EKG showed a fib with RVR - rate control with Metoprolol Succinate 25 bid - Consult Dr Laura - Resume Eliquis 5 mg # Hyperthyroidism - Started Methimazole # Acute complicated UTI - evident on urinalysis - ordered urine bacterial culture - currently giving Rocephin # BPH -Flomax No GI PPX Eliquis Cardiac diet Goals of care discussed with the patient for more than 27 minutes: Full code status Plan discussed with: Patient Date of Service: Jun 11, 2024 Billing Provider: DIEGO MARVIN MD Common Visit Codes: [id number] INP/OBS CARE(HIGH) Secondary Visit Codes: [id number] CARE PLAN 30 MINUTES DIEGO MARVIN MD Jun 11, 2024 17:42
[2024-06-11] MEDS: METOPROLOL SUCCINATE XL 50 MG TAB PO SCH (21:50)
[2024-06-12] VITALS (9 sets, daily range): BP systolic 91–123; BP diastolic 53–86; PULSE 53–122; RESP 15–18; TEMP 97.9–98.2; O2SAT 93–98
--- NOTE | 2024-06-12 11:16 | DVHPN2 ---
Progress Note - Dictate Date Seen: Jun 11, 2024 Medical Necessity Reason Pt with a Central, PICC or Fol: No Subjective PT WITH WITH HX OF AFIB NOW WITH RVR HYPERTHYROIDISM BPH TROPONIN NEGATIVE BNP NEGATIVE vital signs Vital Sign Date Time Temp Pulse Resp B/P (MAP) Pulse Ox O2 Delivery O2 Flow Rate FiO2 06/12/24 10:00 80 06/12/24 09:21 125/78 06/12/24 09:00 97.9 18 93 97.9 06/12/24 08:00 Room Air* 0 21 Total Intake and Output 06/11/24 06/11/24 06/12/24 15:00 23:00 07:00 Intake Total 100 ml 525 ml Output Total 0 ml Balance 100 ml 525 ml medications Current Medications Medications Dose Ordered Sig/Manuel Route Start Time Stop Time Status Last Admin Dose Admin Sodium Chloride 10 ml Q8HR IV 06/10/24 22:00 06/12/24 05:39 10 ML Acetaminophen 650 mg Q6HP PRN PO 06/10/24 21:30 Morphine Sulfate 2 mg Q4HPRN PRN IV 06/10/24 21:30 06/11/24 01:26 2 MG Nitroglycerin 0.4 mg Q5MINP PRN SL 06/10/24 21:30 Morphine Sulfate 2 mg Q30M PRN IV 06/10/24 21:30 Apixaban 5 mg BID PO 06/10/24 22:00 06/12/24 09:18 5 MG Tamsulosin HCl 0.4 mg BID PO 06/10/24 22:00 06/12/24 09:18 0.4 MG Digoxin 0.25 mg DAILY PO 06/11/24 10:00 06/11/24 10:40 0.25 MG Triamterene/HCTZ 1 cap DAILY PO 06/11/24 10:00 06/12/24 09:21 1 CAP Ceftriaxone Sodium 50 ml @ 100 mls/hr DAILY@09 IV 06/11/24 09:00 06/12/24 09:18 100 MLS/HR Methimazole 10 mg Q8HR PO 06/11/24 08:15 06/12/24 05:39 10 MG Metoprolol Succinate 50 mg BID PO 06/11/24 22:00 06/12/24 09:21 50 MG Sodium Chloride 1,000 ml @ 100 mls/hr Q10H IV 06/11/24 13:30 06/11/24 17:32 100 MLS/HR laboratory and microbiology Laboratory Tests 06/11/24 05:18 Test 06/11/24 05:18 Range/Units Serum Glucose 93 74-106 mg/dL Problem List HX OF AFIB NOW WITH RVR HYPERTHYROIDISM BPH TROPONIN NEGATIVE BNP NEGATIVE Assessment/Plan AGREE WITH METHIMAZOLE TITRATE BETA ANNA DC DIG USE METOPROL SUCCINATE NOT TARTRATE RATE CONTROLLED MAY DC HOME HYPERTHROIDISM MANAGED OUTPT Plan discussed with: Patient JEROD LARSEN MD Jun 12, 2024 11:16
--- NOTE | 2024-06-12 17:46 | DVHPN2 ---
Subjective Seen and examined at bedside, Feeling better. DC in AM Changes from previous H/P or p: No Changes Eyes: No Pain, No Vision change, No Conjunctivae inflammation, No Eyelid inflammation, No Other, No Redness ENT: No Ear pain, No Ear discharge, No Nose pain, No Nose discharge, No Nose congestion, No Mouth pain, No Mouth swelling, No Throat pain, No Throat swelling, No Other Cardiovascular: No Chest Pain, No Palpitations, No Orthopnea, No Paroxysmal Noc. Dyspnea, No Edema, No Lt Headedness, No Other Respiratory: No Cough, No Dry, No Shortness of breath, No SOB with excertion, No Wheezing, No Hemoptysis, No Pleuritic Pain, No Sputum, No Other Genitourinary: No Dysuria, No Frequency, No Incontinence, No Hematuria, No Retention, No Other Musculoskeletal: No other, No neck pain, No shoulder pain, No arm pain, No back pain, No hand pain, No leg pain, No foot pain Skin: No Rash, No Lesions, No Jaundice, No Bruising, No Other Objective Vitals Vital Signs Date Time Temp Pulse Resp B/P (MAP) Pulse Ox O2 Delivery O2 Flow Rate FiO2 06/12/24 16:30 98.1 61 18 106/76 (86) 95 98.1 06/12/24 08:00 Room Air* 0 21 Intake/Output Intake and Output 06/12/24 07:00 Intake Total 625 ml Output Total 0 ml Balance 625 ml Intake Oral 525 ml IV Total 100 ml Stool Total 0 ml # Voids 12 Exam Gen: in bed NAD Cvs: N S1/S2, RRR Resp: BLAE Abd: Soft, NT [employer]: AAO x 4 Medications Current Medications Medications Dose Ordered Sig/Manuel Route Start Time Stop Time Status Last Admin Dose Admin Sodium Chloride 10 ml Q8HR IV 06/10/24 22:00 06/12/24 13:39 10 ML Morphine Sulfate 2 mg Q4HPRN PRN IV 06/10/24 21:30 06/11/24 01:26 2 MG Nitroglycerin 0.4 mg Q5MINP PRN SL 06/10/24 21:30 Morphine Sulfate 2 mg Q30M PRN IV 06/10/24 21:30 Apixaban 5 mg BID PO 06/10/24 22:00 06/12/24 09:18 5 MG Tamsulosin HCl 0.4 mg BID PO 06/10/24 22:00 06/12/24 09:18 0.4 MG Triamterene/HCTZ 1 cap DAILY PO 06/11/24 10:00 06/12/24 09:21 1 CAP Ceftriaxone Sodium 50 ml @ 100 mls/hr DAILY@09 IV 06/11/24 09:00 06/12/24 09:18 100 MLS/HR Methimazole 10 mg Q8HR PO 06/11/24 08:15 06/12/24 13:39 10 MG Metoprolol Succinate 50 mg BID PO 06/11/24 22:00 06/12/24 09:21 50 MG Sodium Chloride 1,000 ml @ 100 mls/hr Q10H IV 06/11/24 13:30 06/12/24 11:40 100 MLS/HR Acetaminophen 650 mg Q6HP PRN PO 06/12/24 16:00 Laboratory Results Laboratory Tests 06/11/24 05:18 Urinalysis Test 06/10/24 22:53 Urine Color Yellow (Yellow) Urine Clarity Clear (Clear) Urine pH 5.0 (5.0-9.0) Urine Specific [place] 1.020 (1.001-1.035) Urine Protein Trace (Negative) H Urine Ketones Negative (Negative) Urine Blood Negative /uL (Negative) Urine Nitrite Negative (Negative) Urine Bilirubin Negative (Negative) Urine Urobilinogen Normal mg/dL (Negative) Urine Leukocyte Esterase 1+ /uL (Negative) Urine RBC 1 /hpf (0 - 3) Urine Microscopic WBC 9 /HPF (0-3) H Urine Squamous Epithelial Cells Few /hpf (<5) Urine Bacteria None seen /hpf (None Seen) Urine Granular Casts Few /lpf (0) Urine Mucus Few (None Seen) Urine Glucose Normal mg/dL (Normal) Microbiology Microbiology Date/Time Source Procedure Growth Status 06/11/24 07:58 Voided Urine Urine Culture - Preliminary Resulted Assessment/Plan Assessment/Plan # Chest Pain Ruled out ACS -reviewed EKG showed no ST changes but afib -troponins were negative -chest pain protocol ordered # AFib RVR and secondary hypercoagulable state - afib likely due to underlying hyperthyroididsm - monitoring on telemetry - EKG showed a fib with RVR - rate control with Metoprolol Succinate 25 bid - Consult Dr Laura - Resume Eliquis 5 mg # Hyperthyroidism - Started Methimazole # Acute complicated UTI - evident on urinalysis - ordered urine bacterial culture - currently giving Rocephin # BPH -Flomax No GI PPX Eliquis Cardiac diet Goals of care discussed with the patient for more than 27 minutes: Full code status Plan discussed with: Patient My Orders Orders - DIEGO MARVIN MD Procedure Category Date Status Time Electrocardigram EKG 06/11/24 Logged 18:29 Electrocardigram EKG 06/11/24 Logged 18:31 Acetaminophen Tablet PHA 06/12/24 In Process (Tylenol Tablet) 16:00 Date of Service: Jun 12, 2024 Billing Provider: DIEGO MARVIN MD Common Visit Codes: [id number] INP/OBS CARE(HIGH) DIEGO MARVIN MD Jun 12, 2024 17:46
[2024-06-12] MEDS: ACETAMINOPHEN 325 MG TAB PO PRN (20:55)
[2024-06-13 00:57] VITALS: BP 101/68; PULSE 85; RESP 16; TEMP 98.3; O2SAT 96
[2024-06-13 04:45] VITALS: BP 83/51; PULSE 98; RESP 16; TEMP 98.4; O2SAT 95
[2024-06-13 07:00] VITALS: BP 116/81; PULSE 81; RESP 18; TEMP 98.2; O2SAT 94
[2024-06-13 07:48] LABS: Anion Gap 6 (5-15); Carbon Dioxide 28 mmol/L (20-31); Chloride 106 mmol/L (98-107); Potassium 3.8 mmol/L (3.5-5.1); Sodium 140 mmol/L (136-145)
[2024-06-13 07:49] LABS: Calcium 9.2 mg/dL (8.7-10.4)
[2024-06-13 07:54] LABS: BUN/Creatinine Ratio 11.6 (10.0-20.0); Blood Urea Nitrogen 14 mg/dL (9-23); Glucose 105 mg/dL (74-106); Magnesium 1.9 mg/dL (1.6-2.6)
[2024-06-13 08:00] VITALS: PULSE 120
--- NOTE | 2024-06-13 09:23 | DVHPN2 ---
Progress Note - Dictate Date Seen: Jun 12, 2024 Medical Necessity Reason Pt with a Central, PICC or Fol: No Subjective PT WITH WITH HX OF AFIB NOW WITH RVR HYPERTHYROIDISM BPH TROPONIN NEGATIVE BNP NEGATIVE vital signs Vital Sign Date Time Temp Pulse Resp B/P (MAP) Pulse Ox O2 Delivery O2 Flow Rate FiO2 06/13/24 08:00 Nasal Cannula* 2 28 06/13/24 04:45 98.4 98 16 83/51 (62) 95 98.4 Total Intake and Output 06/12/24 06/12/24 06/13/24 14:59 22:59 06:59 Intake Total 1000 ml 1474 ml 700 ml Balance 1000 ml 1474 ml 700 ml medications Current Medications Medications Dose Ordered Sig/Manuel Route Start Time Stop Time Status Last Admin Dose Admin Sodium Chloride 10 ml Q8HR IV 06/10/24 22:00 06/13/24 06:05 10 ML Morphine Sulfate 2 mg Q4HPRN PRN IV 06/10/24 21:30 06/11/24 01:26 2 MG Nitroglycerin 0.4 mg Q5MINP PRN SL 06/10/24 21:30 Morphine Sulfate 2 mg Q30M PRN IV 06/10/24 21:30 Apixaban 5 mg BID PO 06/10/24 22:00 06/12/24 21:33 5 MG Tamsulosin HCl 0.4 mg BID PO 06/10/24 22:00 06/12/24 21:32 0.4 MG Triamterene/HCTZ 1 cap DAILY PO 06/11/24 10:00 06/12/24 09:21 1 CAP Ceftriaxone Sodium 50 ml @ 100 mls/hr DAILY@09 IV 06/11/24 09:00 06/12/24 09:18 100 MLS/HR Methimazole 10 mg Q8HR PO 06/11/24 08:15 06/13/24 06:07 10 MG Metoprolol Succinate 50 mg BID PO 06/11/24 22:00 06/12/24 21:41 50 MG Acetaminophen 650 mg Q6HP PRN PO 06/12/24 16:00 06/12/24 20:55 650 MG laboratory and microbiology Laboratory Tests 06/13/24 06:40 06/11/24 05:18 Test 06/13/24 06:40 Range/Units Serum Glucose 105 74-106 mg/dL Problem List HX OF AFIB NOW WITH RVR HYPERTHYROIDISM BPH TROPONIN NEGATIVE BNP NEGATIVE Assessment/Plan AGREE WITH METHIMAZOLE TITRATE BETA ANNA DC DIG USE METOPROL SUCCINATE NOT TARTRATE RATE CONTROLLED MAY DC HOME HYPERTHROIDISM MANAGED OUTPT Plan discussed with: Patient Critical Care Time(min): 35 JEROD LARSEN MD Jun 13, 2024 09:23
[2024-06-13] MEDS ORDERED: METO-6 PO (11:58)
[2024-06-13] MEDS ORDERED: METH-552 PO (11:58)
--- NOTE | 2024-06-13 12:03 | DVHDS2 ---
Discharge Summary Date of Admission Jun 10, 2024 at 21:29 Date of Discharge: Jun 13, 2024 Admitting Diagnosis Chest Pain Labs/Diagnostic Data: Laboratory Results Test 06/13/24 06:40 06/11/24 05:18 06/10/24 22:53 06/10/24 21:51 Sodium Level 140 mmol/L (136-145) Potassium Level 3.8 mmol/L (3.5-5.1) Chloride Level 106 mmol/L (98-107) Carbon Dioxide Level 28 mmol/L (20-31) Anion Gap 6 (5-15) Blood Urea Nitrogen 14 mg/dL (9-23) Creatinine 1.21 mg/dL (0.700-1.30) Glomerular Filtration Rate Calc 67 mL/min (>90) BUN/Creatinine Ratio 11.6 (10.0-20.0) Serum Glucose 105 mg/dL (74-106) Calcium Level 9.2 mg/dL (8.7-10.4) Magnesium Level 1.9 mg/dL (1.6-2.6) White Blood Count 7.2 10^3/uL (4.4-10.8) Red Blood Count 5.62 10^6/uL (4.5-5.90) Hemoglobin 17.2 g/dL (13.5-17.5) Hematocrit 50.2 % (41.0-53.0) Mean Corpuscular Volume 89.3 fL (80.0-100.0) Mean Corpuscular Hemoglobin 30.7 pg (28.0-32.0) Mean Corpuscular Hemoglobin Concent 34.4 g/dL (32.0-36.0) Red Cell Distribution Width 14.4 % (11.8-14.3) Platelet Count 180 10^3/uL (140-450) Mean Platelet Volume 9.2 fL (6.9-10.8) Neutrophils (%) (Auto) 57.4 % (37.0-80.0) Lymphocytes (%) (Auto) 31.1 % (10.0-50.0) Monocytes (%) (Auto) 8.9 % (0.0-12.0) Eosinophils (%) (Auto) 1.8 % (0.0-7.0) Basophils (%) (Auto) 0.8 % (0.0-2.0) Neutrophils # (Auto) 4.1 10 ^3/uL (1.6-8.6) Lymphocytes # (Auto) 2.2 10 ^3/uL (0.4-5.4) Monocytes # (Auto) 0.6 10 ^3/uL (0-1.3) Eosinophils # (Auto) 0.1 10 ^3/uL (0-0.8) Basophils # (Auto) 0.1 10 ^3/uL (0-0.2) Nucleated Red Blood Cells 0.3 % Total Bilirubin 1.3 mg/dL (0.2-1.0) Aspartate Amino Transferase (AST) 31 U/L (13-40) Alanine Aminotransferase (ALT) 42 U/L (7-40) Alkaline Phosphatase 65 U/L (46-116) Total Protein 6.5 g/dL (5.7-8.2) Albumin 4.0 g/dL (3.2-4.8) Free Thyroxine (T4) Calculated 3.54 ng/dL (0.89-1.76) Total Triiodothyronine (TT3) 2.20 ng/mL (0.60-1.81) Urine Color Yellow (Yellow) Urine Clarity Clear (Clear) Urine pH 5.0 (5.0-9.0) Urine Specific [place] 1.020 (1.001-1.035) Urine Protein Trace (Negative) Urine Ketones Negative (Negative) Urine Blood Negative /uL (Negative) Urine Nitrite Negative (Negative) Urine Bilirubin Negative (Negative) Urine Urobilinogen Normal mg/dL (Negative) Urine Leukocyte Esterase 1+ /uL (Negative) Urine RBC 1 /hpf (0 - 3) Urine Microscopic WBC 9 /HPF (0-3) Urine Squamous Epithelial Cells Few /hpf (<5) Urine Bacteria None seen /hpf (None Seen) Urine Granular Casts Few /lpf (0) Urine Mucus Few (None Seen) Urine Glucose Normal mg/dL (Normal) Urine Opiates Screen Neg (NEGATIVE) Urine Fentanyl Screen Neg (NEGATIVE) Urine Barbiturates Screen Neg (NEGATIVE) Urine Phencyclidine Screen Neg (NEGATIVE) Urine Amphetamines Screen Neg (NEGATIVE) Urine Benzodiazepines Screen Neg (NEGATIVE) Urine Cocaine Screen Neg (NEGATIVE) Urine Cannabinoids Screen Neg (NEGATIVE) Influenza Type A Antigen Negative (Negative) Influenza Type B Antigen Negative (Negative) SARS-CoV-2 Antigen (Rapid) Negative (NEGATIVE) Prothrombin Time 11.7 sec (9.3-11.8) Prothrombin Time INR 1.12 (0.9-1.15) Activated Partial Thromboplast Time 28.2 SEC (24.5-34.5) D-Dimer, Quantitative 0.40 mg/L FEU (0.0-0.49) Lactic Acid Level 1.3 mmol/L (0.4-2.0) Troponin I High Sensitivity 14 ng/L (</=54) Thyroid Stimulating Hormone (TSH) 0.01 uIU/mL (0.55-4.78) Plasma/Serum Blood Alcohol < 3.0 mg/dL (<10) Test 06/10/24 14:25 B-Type Natriuretic Peptide 164.39 pg/mL (0-100) Other Laboratory Tests 06/13/24 06:40 06/11/24 05:18 Brief Hx & Hospital Course: GOLD JOSEPH JR is a 63-year-old male with PMH of AFib and HTN presented to the ED with the chief complaints of left-sided chest pain and elevated blood pressure on the day of admission. Patient reported he started having left-sided chest pain which is sharp started for a.m. in the moaning with no aggravating or relieving factors and no radiation but patient reported he felt like he is going to pass out. Patient also reported mild shortness of breath which is on and off with the no aggravating or relieving factors. Patient reported he is following with Dr. Laura for AFib. Patient also reported mild dizziness and generalized weakness. Patient was diagnosed with Hyperthyroidism. Started on Methimazole. Patients medications were adjusted, advised to see Dr. Laura in the clinic in 1 week. Condition at Discharge: Stable Final Diagnosis/Problems List # Chest Pain Ruled out ACS # AFib RVR and secondary hypercoagulable state # Hyperthyroidism - Started Methimazole # Acute complicated UTI # BPH Discharge Disposition: Home Discharge Instruct/Medications Diet: Cardiac 2g Na,low cholest Activity: Light activity Follow Up/Referral: Dr. Laura in 1 week Medications: See [facility] Discharge Statement: "Patient was advised to return to the ER or call 911 if any headaches, dizziness, shortness of breath, chest pain, abdominal pain, bleeding, fevers, or worsening of medical condition. Patient was counseled about treatment plan, medications, possible side effects, patientverbalized understanding. All questions were answered to the best of my ability. This discharge took greater then 30 minutes in planning, reviewing documentation, counseling the patient, and discussing with other team members." ASSESSMENT ASSESSMENT Assessment Date of Service: Jun 13, 2024 Billing Provider: DIEGO MARVIN MD Common Visit Codes: [id number]/OBS DISCH DAY >30min DIEGO MARVIN MD Jun 13, 2024 12:03
--- NOTE | 2024-06-13 13:49 | ECG ---
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
--- NOTE | 2024-06-13 13:50 | ECG ---
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
== END 2024-06-13 14:15 | disposition home or self-care (01) | DRG 309 ==
LOC: ER 13:55 → OVERFLOW 21:29 → TELE-WESTW 06-11 16:43
PROVIDERS: ADMIT Internal Medicine; ATTEND Internal Medicine
DX: I48.91 Unspecified atrial fibrillation (principal); D68.69 Other thrombophilia; N39.0 Urinary tract infection, site not specified; Z20.822 Contact with and (suspected) exposure to COVID-19; N40.0 Benign prostatic hyperplasia without lower urinary tract symptoms; I10 Essential (primary) hypertension; E05.90 Thyrotoxicosis, unspecified without thyrotoxic crisis or storm; G90.89 Other disorders of autonomic nervous system; Z79.01 Long term (current) use of anticoagulants; Z79.899 Other long term (current) drug therapy
CPT/HCPCS: 36415; 71045; 80048; 80053; 80307; 80320; 81001; 83605; 83735; 83880; 84439; 84443; 84480; 84484; 85025; 85379; 85610; 85730; 87086; 87426; 87804; 93005; 96361; 96374; G0378

== ENCOUNTER 2024-07-09 09:43 | Inpatient (IN) | payer OTHER ==
[~2024-07-09] VITALS: Ht 180.3 cm; Wt 102.9 kg
[~2024-07-09 09:43] MED LIST changes: -DIGO0.25 PO; +METH-552 PO; +METO-6 PO; -SOTA80TA PO; -TEMA15CA2 PO
--- NOTE | 2024-07-09 10:56 | DVH ---
EXAM: XY CHEST PORTABLE HISTORY: palpitations COMPARISON: XY CHEST PORTABLE on DOS: 06/10/24, CHEST PORTABLE on DOS: 09/07/21, CXRP on DOS: 09/07/21, JERO ST PORTABLE on DOS: 06/17/21 TECHNIQUE: Portable AP view of the chest was performed. FINDINGS: No pneumothorax, consolidative infiltrates, or pulmonary edema. The heart is not enlarged. There is t horacic degenerative disc disease. There is slight thoracic dextroscoliosis. There is stable increase d density of the medial aspect of the left proximal humerus, possibly due to old healed fracture, xiomy orheostosis, or other etiology. IMPRESSION: No acute intrathoracic process.
[2024-07-09] MEDS: METOPROLOL TARTRATE 1MG/1ML-5ML VIAL IV ONE ×2 (11:00)
--- NOTE | 2024-07-09 11:06 | ED.PDOC ---
History of Present Illness HPI Comments 63Y M with PMHx Afib and HTN presents to ED for chief complaint SOB x1 month with dizziness and weakness. Pt states SOB worsens with activity. Pt denies chest pain. Pt was referred to ED by Dr. Laura as EKG showed Afib. Pt is currently taking Tamsulosin, Triamterene, Metoprolol 50 XL, and Eliquis 5mg. No other symptoms/history reported. Chief Complaint: Dizziness Time Seen by MD: 10:15 Primary Care Provider: prakash Reviewed Notes: Nurses Notes, Medications, Allergies Allergies: Coded Allergies: NO KNOWN ALLERGIES (Unverified , 04/21/19) Home Meds Active Scripts Metoprolol Succinate (Toprol Xl) 50 Mg Tab, 50 MG PO BID for 30 Days, #60 TAB Prov:DIEGO MARVIN MD 06/13/24 Methimazole (Methimazole) 10 Mg Tab, 10 MG PO TID for 30 Days, #90 TAB Prov:DIEGO MARVIN MD 06/13/24 Reported Medications Tadalafil (Cialis) 5 Mg Tab, 5 MG PO DAILY, TAB 04/21/19 Vortioxetine Hydrobromide (Trintellix) 10 Mg Tab, 10 MG PO DAILY for DEPRESSION, TAB 04/21/19 Apixaban Base (ELIQUIS) 5 Mg Tab, 5 MG PO BID for BLOOD THINNER, TAB 04/21/19 Hydrochlorothiazide W/Triamter (Dyazide 37.5/25MG) 1 Cap Cp, 1 CAP PO DAILY for HTN, CAP 04/21/19 Tamsulosin Hcl (Flomax) 0.4 Mg Cap, 0.4 MG PO BID, CAP 04/21/19 Information Source: Patient Mode of Arrival: Ambulatory Severity: Mild Timing: Months Duration: Intermittent Prehospital treatment: None Past Medical History PAST MEDICAL HISTORY: AFIB, HTN, Thyroid Surgical History: Denies all surgeries Family History Family History: Reviewed,noncontributory to illness Social History Smoker: Non-Smoker Alcohol: Denies ETOH Use Drugs: Denies Drug Use Lives In: Home Constitutional: reports: weakness; denies: chills, diaphoresis, fatigue, fever, malaise, sweats, others EENTM: denies: blurred vision, double vision, ear bleeding, ear discharge, ear drainage, ear pain, ear ringing, eye pain, eye redness, hearing loss, mouth pain, mouth swelling, nasal discharge, nose bleeding, nose congestion, nose pain, photophobia, tearing, throat pain, throat swelling, voice changes, others Respiratory: reports: SOB at rest; denies: cough, hemoptysis, orthopnea, shortness of breath, SOB with excertion, stridor, wheezing, others Cardiovascular: denies: chest pain, dizzy spells, diaphoresis, Dyspnea on exertion, edema, irregular heart beat, left arm pain, lightheadedness, palpitations, PND, syncope, others Gastrointestinal: denies: abdomen distended, abdominal pain, blood streaked bowels, constipated, diarrhea, dysphagia, difficulty swallowing, hematemesis, melena, nausea, poor appetite, poor fluid intake, rectal bleeding, rectal pain, vomiting, others Genitourinary: denies: burning, dysuria, flank pain, frequency, hematuria, incontinence, penile discharge, penile sore, pain, testicle pain, testicle swelling, urgency, others Neurological: reports: dizziness; denies: fainting, headache, left sided numbness, left sided weakness, numbness, paresthesia, pre-existing deficit, right sided numbness, right sided weakness, seizure, speech problems, tingling, tremors, weakness, others Musculoskeletal: denies: back pain, gout, joint pain, joint swelling, muscle pain, muscle stiffness, neck pain, others Integumetry: denies: bruises, change in color, change in hair/nails, dryness, laceration, lesions, lumps, rash, wounds, others Allergic/Immunocompromised: denies: Difficulty Healing, Frequent Infections, Hives, Itching, others Hematologic/Lymphatic: denies: anemia, blood clots, easy bleeding, easy bruising, swollen glands, others Endocrine: denies: excessive hunger, excessive sweating, excessive thirst, excessive urination, flushing, intolerance to cold, intolerance to heat, unexp lained weight gain, unexplained weight loss, others Psychiatric: denies: anxiety, bipolar disorder, depression, hopeless, panic disorder, schizophrenia, sleepless, suicidal, others All Other Systems: Reviewed and Negative Physical Exam General Appearance: No Apparent Distress, Normal HEENT: Normal ENT Inspection, Pharynx Normal, TMs Normal Neck: Full Range of Motion, Non-Tender, Normal, Normal Inspection Respiratory: Chest Non-Tender, Lungs Clear, No Accessory Muscle Use, No Respiratory Distress, Normal Breath Sounds Cardiovascular: No Edema, No JVD, No Murmur, No Gallop, Normal Peripheral Pulse s, Regular Rate/Rhythm Breast Exam: Deferred Gastrointestinal: No Organomegaly, Non Tender, No Pulsatile Mass, Normal Bowel Sounds, Soft Genitalia: Deferred Pelvic: Deferred Rectal: Deferred Extremities: No calf tenderness, Normal capillary refill, Normal inspection, Normal range of motion, Non-tender, No pedal edema Musculoskeletal : Apperance: Normal Neurologic: Alert, drug abuse program coordinator II-XII nml as Tested, No Motor Deficits, Normal Affect, Normal Mood, No Sensory Deficits Cerebellar Function: NOT DONE Reflexes: NOT DONE Skin: Dry, Normal Color, Warm Lymphatic: No Adenopathy Was a procedure done? Was a procedure done?: No Differential Dx Considerations may include: Afib X-Ray, Labs, Meds, VS Vital Signs Date Time Temp Pulse Resp B/P (MAP) Pulse Ox O2 Delivery O2 Flow Rate FiO2 07/09/24 11:30 142 127/103 07/09/24 11:25 97 Nasal Cannula* 2 28 07/09/24 11:18 97.0 138 18 127/103 (111) 91 97.0 07/09/24 11:00 164 138/95 07/09/24 10:32 97.8 157 24 138/95 (109) 92 97.8 07/09/24 09:44 97.2 63 19 117/65 (82) 95 97.2 Lab Test 07/09/24 14:00 07/09/24 12:00 07/09/24 10:40 Range/Units Troponin I High Sensitivity Pending 15 14 </=54 ng/L White Blood Count 6.6 4.4-10.8 10^3/uL Red Blood Count 5.32 4.5-5.90 10^6/uL Hemoglobin 16.0 13.5-17.5 g/dL Hematocrit 48.1 41.0-53.0 % Mean Corpuscular Volume 90.4 80.0-100.0 fL Mean Corpuscular Hemoglobin 30.1 28.0-32.0 pg Mean Corpuscular Hemoglobin Concent 33.3 32.0-36.0 g/dL Red Cell Distribution Width 13.5 11.8-14.3 % Platelet Count 168 140-450 10^3/uL Mean Platelet Volume 10.0 6.9-10.8 fL Neutrophils (%) (Auto) 69.7 37.0-80.0 % Lymphocytes (%) (Auto) 20.0 10.0-50.0 % Monocytes (%) (Auto) 8.5 0.0-12.0 % Eosinophils (%) (Auto) 1.0 0.0-7.0 % Basophils (%) (Auto) 0.8 0.0-2.0 % Neutrophils # (Auto) 4.6 1.6-8.6 10 ^3/uL Lymphocytes # (Auto) 1.3 0.4-5.4 10 ^3/uL Monocytes # (Auto) 0.6 0-1.3 10 ^3/uL Eosinophils # (Auto) 0.1 0-0.8 10 ^3/uL Basophils # (Auto) 0.1 0-0.2 10 ^3/uL Nucleated Red Blood Cells 0.2 % Sodium Level 139 136-145 mmol/L Potassium Level 3.8 3.5-5.1 mmol/L Chloride Level 107 98-107 mmol/L Carbon Dioxide Level 23 20-31 mmol/L Anion Gap 9 5-15 Blood Urea Nitrogen 9 9-23 mg/dL Creatinine 1.07 0.700-1.30 mg/dL Glomerular Filtration Rate Calc 77 >90 mL/min BUN/Creatinine Ratio 8.4 L 10.0-20.0 Serum Glucose 103 74-106 mg/dL Lactic Acid Level 1.6 0.4-2.0 mmol/L Calcium Level 9.3 8.7-10.4 mg/dL B-Type Natriuretic Peptide 456.32 0-100 pg/mL Current Medications Medications (Trade) Dose Ordered Sig/Manuel Route Start Time Stop Time Status Last Admin Metoprolol Tartrate (Lopressor) 5 mg ONCE ONCE IV 07/09/24 11:00 07/09/24 11:01 DC 07/09/24 11:00 Amiodarone HCl 100 ml @ 600 mls/hr ONCE ONCE IV 07/09/24 12:30 07/09/24 12:39 [place] 07/09/24 12:[address] [address] Ph: [phone] DIAGNOSTIC IMAGING Diagnostic Imaging Report : [id number] Signed PATIENT: GOLD JOSEPH JR ACCT: [id number] UNIT: [id number] : 1960 LOC: ER ROOM / BED: / AGE / SEX: 63 / M ADM STATUS: REG ER SERVICE 1027 ORDERING PHYSICIAN: KYRA SHAH MD PROCEDURE(s): CXRP - CHEST PORTABLE REASON: palpitations ORDER NUMBER(s): [id number], ACCESSION NUMBER(s): [id number] EXAM: XY CHEST PORTABLE HISTORY: palpitations COMPARISON: XY CHEST PORTABLE on DOS: 06/10/24, CHEST PORTABLE on DOS: 09/07/21, CXRP on DOS: 09/07/21, CHEST PORTABLE on DOS: 06/17/21 TECHNIQUE: Portable AP view of the chest was performed. FINDINGS: No pneumothorax, consolidative infiltrates, or pulmonary edema. The heart is not enlarged. There is thoracic degenerative disc disease. There is slight thoracic dextroscoliosis. There is stable increased density of the medial aspect of the left proximal humerus, possibly due to old healed fracture, melorheostosis, or other etiology. IMPRESSION: No acute intrathoracic process. ATED BY: KENNY MUNGUIA MD DICTATED DATE/TIME: 07/09/24 105 SIGNED BY: KENNY MUNGUIA MD SIGNED DATE/TIME: 07/09/24 105 CC: Time of 1ST Reevaluation: 10:45 Reevaluation 1ST: Unchanged Patient Education/Counseling: Diagnosis, Treatment Family Education/Counseling: No Family Present Departure 1 Departure Time of Disposition: 14:34 (Patient with a AFib with RVR. Patient is started on an amnio drip. We will admit patient for further workup and expert consultation) Impression: Primary Impression: Atrial fibrillation with RVR Additional Impressions: Palpitations Shortness of breath Disposition: ADMITTED INPATIENT Admit to: [facility] Condition: Guarded Critical Care Note Critical Care Time?: Yes Critical care comment: AFib with RVR Authorized and Performed by: Kyra Shah MD Total critical care time: Approximately 43 minutes Due to a high probability of clinically significant, life threatening deterioration, the patient required my highest level of preparedness to intervene emergently and I personally spent this critical care time directly and personally managing the patient. This critical care time included obtaining a history; examining the patient; pulse oximetry; ordering and review of studies; arranging urgent treatment with development of a management plan; evaluation of patient's response to treatment; frequent reassessment; and, discussions with other providers. This critical care time was performed to assess and manage the high probability of imminent, life-threatening deterioration that could result in multi-organ failure. It was exclusive of separately billable procedures and treating other patients and teaching time. Please see my other sections and the rest of the note for further information on patient assessment and treatment. Stability Stability form required: No I personally scribed for KYRA SHAH MD ([facility]) on 07/09/24 at 11:06. Electronically submitted by Lisa Langford ([email or web address]). I personally scribed for KYRA SHAH MD ([email or web address]) on 07/09/24 at 11:25. Electronically submitted by Lisa Langford ([facility] KYRA SHAH MD Jul 09, 2024 11:06
[2024-07-09 11:09] LABS: Basophils # (auto) 0.1 10 ^3/uL (0-0.2); Basophils % (auto) 0.8 % (0.0-2.0); Eosinophils # (auto) 0.1 10 ^3/uL (0-0.8); Hematocrit 48.1 % (41.0-53.0); Lymphocytes # (auto) 1.3 10 ^3/uL (0.4-5.4); Mean Corpuscular Hemoglobin 30.1 pg (28.0-32.0); Mean Corpuscular Hgb Conc. 33.3 g/dL (32.0-36.0); Mean Corpuscular Volume 90.4 fL (80.0-100.0); Monocytes # (auto) 0.6 10 ^3/uL (0-1.3); Monocytes % (auto) 8.5 % (0.0-12.0); Neutrophils # (auto) 4.6 10 ^3/uL (1.6-8.6); Neutrophils % (auto) 69.7 % (37.0-80.0); Nucleated Red Blood Cells % 0.2 %; Platelet Count (auto) 168 10^3/uL (140-450); Red Blood Cells 5.32 10^6/uL (4.5-5.90); Red Cell Distribution Width 13.5 % (11.8-14.3); White Blood Cell 6.6 10^3/uL (4.4-10.8)
[2024-07-09 11:28] LABS: Potassium 3.8 mmol/L (3.5-5.1); Sodium 139 mmol/L (136-145)
[2024-07-09 11:29] LABS: Anion Gap 9 (5-15); Calcium 9.3 mg/dL (8.7-10.4); Carbon Dioxide 23 mmol/L (20-31)
[2024-07-09 11:30] LABS: Chloride 107 mmol/L (98-107)
[2024-07-09 11:34] LABS: BUN/Creatinine Ratio 8.4 (10.0-20.0); Blood Urea Nitrogen 9 mg/dL (9-23); Glucose 103 mg/dL (74-106)
[2024-07-09] MEDS: AMIODARONE BOLUS KIT 100 ML IV ONE (12:42)
[2024-07-09] MEDS: AMIODARONE 360mg/200mL PREMIX 200 ML IV ONE (12:50)
[2024-07-09] MEDS ORDERED: ACETAMINOPHEN 325 MG TAB PO PRN (17:00)
[2024-07-09] MEDS ORDERED: ONDANSETRON HCL 4 MG/2 ML VIAL IV PRN (17:00)
[2024-07-09] MEDS ORDERED: NITROGLYCERIN 0.4 MG SL TAB SL PRN (17:00)
[2024-07-09] MEDS ORDERED: DOCUSATE SOD 100 MG CAP PO PRN (17:00)
[2024-07-09] MEDS ORDERED: MORPHINE SULFATE INJ 2 MG/ml SYRG IV PRN (17:00)
[2024-07-09] MEDS: SODIUM CHLORIDE 0.9% 1,000 ML IV ONE (17:21)
--- NOTE | 2024-07-09 17:26 | DVHHP2 ---
History of Present Illness Reason for Visit: Dizzziness History of Present Illness Mykel Jackson JR is a 63-year-old male with past medical history of hypertension, atrial fibrillation, BPH, and hyperthyroidism, who came in for dizziness and shortness of breath. Patient states he has had atrial fibrillation since 2011. He states he had a cardioversion a few years ago and was doing very well with it, until about 1 month ago. He states that for about 1 month he has been noticing palpitations, shortness of breath at rest and worse with activity, as well as dizziness. He follows with Dr. Hardy for cardiology. He called Dr. Laura and had an appointment today for an ECHO. During the ECHO his heart rate ws significantly elevated. They stopped the ECHO did an EKG that showed atrial fibrillation with RVR and sent him to the hospital for treatment. IV metoprolol was given, without any response. IV amiodarone bolus followed by drip was started. On assessment, patient remains in atrial fibrillation with rate about 130s. Patient will be admitted to telemetry with cardiology consult. Cardiovascular: AFIB, HTN Renal/: Benign prostatic enlarg. Endocrine: Hyperparathyroidism Past Surgical History: None Smoke: No ALCOHOL: none Drugs: None Lives: Alone Domestic Violence: Neg Review of Systems Constitutional: Yes: Weakness, Other (Dizziness); No: Fever, Chills, Sweats, Malaise Eyes: No: Pain, Vision change, Conjunctivae inflammation, Eyelid inflammation, Other, Redness ENT: No: Ear pain, Ear discharge, Nose pain, Nose discharge, Nose congestion, Mouth pain, Mouth swelling, Throat pain, Throat swelling, Other Respiratory: Shortness of breath, SOB with excertion; No: Cough, Dry, Wheezing, Hemoptysis, Pleuritic Pain, Sputum, Wheezing, Other Cardiovascular: Palpitations; No: Chest Pain, Orthopnea, Paroxysmal Noc. Dyspnea, Edema, Lt Headedness, Other Gastrointestinal: No: Nausea, Vomiting, Abdominal Pain, Diarrhea, Constipation, Melena, Hematochezia, Other Genitourinary: No Dysuria, No Frequency, No Incontinence, No Hematuria, No Retention, No Other Musculoskeletal: No: other, neck pain, shoulder pain, arm pain, back pain, hand pain, leg pain, foot pain Skin: No: Rash, Lesions, Jaundice, Bruising, Other Neurological: No: Weakness, Numbness, Incoordination, Change in speech, Confusion, Seizures, Other Allergies: Coded Allergies: NO KNOWN ALLERGIES (Unverified , 04/21/19) Medications Current Medications Medications Dose Ordered Sig/Manuel Route Start Time Stop Time Status Last Admin Dose Admin Acetaminophen/ Hydrocodone Bitart 1 tab Q4HP PRN PO 07/09/24 17:00 UNV Ondansetron HCl 4 mg Q4HP PRN IV 07/09/24 17:00 UNV Docusate Sodium 100 mg BIDPRN PRN PO 07/09/24 17:00 UNV Acetaminophen 650 mg Q6HP PRN PO 07/09/24 17:00 UNV Nitroglycerin 0.4 mg Q5MINP PRN SL 07/09/24 17:00 UNV Morphine Sulfate 2 mg Q30M PRN IV 07/09/24 17:00 UNV Apixaban 5 mg BID PO 07/09/24 22:00 UNV Metoprolol Succinate 50 mg BID PO 07/09/24 22:00 UNV Tamsulosin HCl 0.4 mg BID PO 07/09/24 22:00 UNV Patient Own Medication 10 mg TID PO 07/09/24 22:00 UNV Patient Own Medication 5 mg DAILY PO 07/10/24 10:00 UNV Patient Own Medication 10 mg DAILY PO 07/10/24 10:00 UNV Exam Vital Signs Vital Signs Date Time Temp Pulse Resp B/P (MAP) Pulse Ox O2 Delivery O2 Flow Rate FiO2 07/09/24 11:30 142 127/103 07/09/24 11:25 97 Nasal Cannula* 2 28 07/09/24 11:18 97.0 18 97.0 General Appearance: Alert, Oriented X3, Cooperative, mild distress HEENT: Atraumatic Respiratory: Clear to auscultation, Normal air movement Cardiovascular: Normal S1, Normal S2, No murmurs, Other (atrial fibrillation with RVR) Abdominal: Normal bowel sounds, Soft, No tenderness, No hepatospenomegaly Extremities: No clubbing, No cyanosis, No edema, Normal pulses Skin: No rashes, No breakdown, No significant lesion Neuro: Normal gait, Normal speech, Strength at 5/5 X4 ext Psych/Mental Status: Mental status NL, Mood NL Labs/Xrays Labs Test 07/09/24 14:00 07/09/24 10:40 Range/Units Troponin I High Sensitivity 13 </=54 ng/L White Blood Count 6.6 4.4-10.8 10^3/uL Red Blood Count 5.32 4.5-5.90 10^6/uL Hemoglobin 16.0 13.5-17.5 g/dL Hematocrit 48.1 41.0-53.0 % Mean Corpuscular Volume 90.4 80.0-100.0 fL Mean Corpuscular Hemoglobin 30.1 28.0-32.0 pg Mean Corpuscular Hemoglobin Concent 33.3 32.0-36.0 g/dL Red Cell Distribution Width 13.5 11.8-14.3 % Platelet Count 168 140-450 10^3/uL Mean Platelet Volume 10.0 6.9-10.8 fL Neutrophils (%) (Auto) 69.7 37.0-80.0 % Lymphocytes (%) (Auto) 20.0 10.0-50.0 % Monocytes (%) (Auto) 8.5 0.0-12.0 % Eosinophils (%) (Auto) 1.0 0.0-7.0 % Basophils (%) (Auto) 0.8 0.0-2.0 % Neutrophils # (Auto) 4.6 1.6-8.6 10 ^3/uL Lymphocytes # (Auto) 1.3 0.4-5.4 10 ^3/uL Monocytes # (Auto) 0.6 0-1.3 10 ^3/uL Eosinophils # (Auto) 0.1 0-0.8 10 ^3/uL Basophils # (Auto) 0.1 0-0.2 10 ^3/uL Nucleated Red Blood Cells 0.2 % Sodium Level 139 136-145 mmol/L Potassium Level 3.8 3.5-5.1 mmol/L Chloride Level 107 98-107 mmol/L Carbon Dioxide Level 23 20-31 mmol/L Anion Gap 9 5-15 Blood Urea Nitrogen 9 9-23 mg/dL Creatinine 1.07 0.700-1.30 mg/dL Glomerular Filtration Rate Calc 77 >90 mL/min BUN/Creatinine Ratio 8.4 L 10.0-20.0 Serum Glucose 103 74-106 mg/dL Lactic Acid Level 1.6 0.4-2.0 mmol/L Calcium Level 9.3 8.7-10.4 mg/dL B-Type Natriuretic Peptide 456.32 0-100 pg/mL EXAM: XY CHEST PORTABLE FINDINGS: No pneumothorax, consolidative infiltrates, or pulmonary edema. The heart is not enlarged. There is thoracic degenerative disc disease. There is slight thoracic dextroscoliosis. There is stable increased density of the medial aspect of the left proximal humerus, possibly due to old healed fracture, melorheostosis, or other etiology. IMPRESSION: No acute intrathoracic process. Assessment/Plan Assessment/Plan Assessment: Atrial fibrillation with RVR, BPH, Hypertension, Hyperthyroidism, Plan: Admit to Tele, Cardiology consult, IV amiodarone, IV hydration, TSH, A1c, Lipid panel, Home medications reconciled, Plan discussed with: Patient My Orders Orders - CRISTOPHER PIÑA Procedure Category Date Status Time Admit ADMIT 07/09/24 Transmitted 17:00 Code Status CODE 07/09/24 Transmitted 17:00 2 Gm Sodium Diet DIET 07/09/24 Transmitted Dinner Hydrocodone-Acet PHA 07/09/24 Logged 5/325mg Tab (Carlotta 17:00 Ondansetron Hcl PHA 07/09/24 Logged (Zofran) 17:00 Docusate Sodium PHA 07/09/24 Logged Capsule (Colace 17:00 Complete Blood Count LAB 07/10/24 Verified 04:00 Comprehensive LAB 07/10/24 Verified Metabolic Panel 04:00 Condition: Serious BRENDEN 07/09/24 In Process 17:00 Acetaminophen Tablet PHA 07/09/24 Logged (Tylenol Tablet) 17:00 Nitroglycerin PHA 07/09/24 Logged Sublingual (Ntrostat 17:00 Morphine Sulfate PHA 07/09/24 Logged Injection 17:00 Stat Ekg For Chest BRENDEN 07/09/24 In Process Pain 17:00 Notify Md Of Changes BRENDEN 07/09/24 In Process From Base 17:00 Soaking Pits Supervisor For BRENDEN 07/09/24 In Process 24 Hours 17:00 Emergency Dysrhythmia BRENDEN 07/09/24 In Process Protocol 17:00 Rhythm Strips Once BRENDEN 07/09/24 In Process Every Shift 17:00 Oxygen By Nasal RT 07/09/24 Transmitted Cannula 17:00 Apixaban (Eliquis) PHA 07/09/24 Logged 22:00 Metoprolol Xl PHA 07/09/24 Logged Succinate (Toprol Xl) 22:00 Tamsulosin PHA 07/09/24 Logged Hydrochloride (Flomax) 22:00 (Nf) Methimazole PHA 07/09/24 Logged 22:00 (Nf) Tadalafil PHA 07/10/24 Logged (Cialis) 10:00 (Nf) Vortioxetine PHA 07/10/24 Logged Hydrobromide (Trintell 10:00 NS PHA 07/09/24 Transmitted 17:15 Date of Service: Jul 09, 2024 Billing Provider: CRISTOPHER PIÑA Common Visit Codes: [id number] INP/OBS CARE (MOD) CRISTOPHER PIÑA Jul 09, 2024 17:26
[2024-07-09] MEDS: AMIODARONE 360mg/200mL PREMIX 200 ML IV SCH (18:57)
[2024-07-09 20:38] VITALS: PULSE 130; RESP 19; O2SAT 96
[2024-07-09 23:17] VITALS: BP 120/87; PULSE 150; PULSE 155; RESP 18; RESP 19; O2SAT 95
[2024-07-09] MEDS: TAMSULOSIN HYDROCHLORIDE 0.4 MG CAP PO SCH (23:26)
[2024-07-09] MEDS: APIXABAN 5 MG TAB PO SCH (23:26)
[2024-07-09] MEDS: METOPROLOL SUCCINATE XL 50 MG TAB PO SCH (23:27)
[2024-07-09] MEDS: methIMAzole 5 MG TAB PO SCH (23:42)
[2024-07-10] VITALS (8 sets, daily range): BP systolic 109–139; BP diastolic 68–101; PULSE 112–148; RESP 16–20; TEMP 97.5–98.3; O2SAT 95–98
[2024-07-10 06:16] LABS: Basophils # (auto) 0.1 10 ^3/uL (0-0.2); Eosinophils # (auto) 0.1 10 ^3/uL (0-0.8); Hematocrit 46.8 % (41.0-53.0); Hemoglobin 15.9 g/dL (13.5-17.5); Lymphocytes # (auto) 1.5 10 ^3/uL (0.4-5.4); Mean Corpuscular Hemoglobin 30.5 pg (28.0-32.0); Mean Corpuscular Hgb Conc. 33.9 g/dL (32.0-36.0); Monocytes # (auto) 0.6 10 ^3/uL (0-1.3); Monocytes % (auto) 8.6 % (0.0-12.0); Neutrophils # (auto) 4.2 10 ^3/uL (1.6-8.6); Neutrophils % (auto) 66.4 % (37.0-80.0); Platelet Count (auto) 171 10^3/uL (140-450); Red Cell Distribution Width 13.2 % (11.8-14.3); White Blood Cell 6.4 10^3/uL (4.4-10.8)
[2024-07-10 06:31] LABS: Alanine Aminotransferase 17 U/L (7-40); Albumin 3.7 g/dL (3.2-4.8); Alkaline Phosphatase 72 U/L (46-116); Anion Gap 11 (5-15); Aspartate Aminotransferase 18 U/L (13-40); Blood Urea Nitrogen 11 mg/dL (9-23); Calcium 9.1 mg/dL (8.7-10.4); Carbon Dioxide 21 mmol/L (20-31); Chloride 107 mmol/L (98-107); Cholesterol 95 mg/dL (< 200); Glucose 94 mg/dL (74-106); LDL Cholesterol 66 mg/dL (< 100); Potassium 3.7 mmol/L (3.5-5.1); Sodium 139 mmol/L (136-145); Total Protein 6.4 g/dL (5.7-8.2); Triglycerides 83 mg/dL (< 150)
[2024-07-10 06:32] LABS: Bilirubin, Total 0.8 mg/dL (0.2-1.0)
[2024-07-10 06:43] LABS: HDL Cholesterol 19 mg/dL (40-59)
--- NOTE | 2024-07-10 08:01 | DVHPN2 ---
Progress Note - Dictate Date Seen: Jul 09, 2024 Medical Necessity Reason Pt with a Central, PICC or Fol: No Subjective SEEN IN OFFICE AFIB RVR SYMPTOMATIC SENT TO ER vital signs Vital Sign Date Time Temp Pulse Resp B/P (MAP) Pulse Ox O2 Delivery O2 Flow Rate FiO2 07/10/24 05:00 97.7 125 19 134/101 (112) 97 97.7 07/09/24 23:17 Nasal Cannula* 3 32 Total Intake and Output 07/09/24 07/09/24 07/10/24 15:00 23:00 07:00 Intake Total 166.66 ml 133.32 ml 200 ml Balance 166.66 ml 133.32 ml 200 ml medications Current Medications Medications Dose Ordered Sig/Manuel Route Start Time Stop Time Status Last Admin Dose Admin Acetaminophen/ Hydrocodone Bitart 1 tab Q4HP PRN PO 07/09/24 17:00 Ondansetron HCl 4 mg Q4HP PRN IV 07/09/24 17:00 Docusate Sodium 100 mg BIDPRN PRN PO 07/09/24 17:00 Acetaminophen 650 mg Q6HP PRN PO 07/09/24 17:00 Nitroglycerin 0.4 mg Q5MINP PRN SL 07/09/24 17:00 Morphine Sulfate 2 mg Q30M PRN IV 07/09/24 17:00 Apixaban 5 mg BID PO 07/09/24 22:00 07/09/24 23:26 5 MG Metoprolol Succinate 50 mg BID PO 07/09/24 22:00 07/09/24 23:27 50 MG Tamsulosin HCl 0.4 mg BID PO 07/09/24 22:00 07/09/24 23:26 0.4 MG Methimazole 10 mg TID PO 07/09/24 22:00 07/10/24 05:54 10 MG Patient Own Medication 5 mg DAILY PO 07/10/24 10:00 Patient Own Medication 10 mg DAILY PO 07/10/24 10:00 objective PUL CLEAR CV RR ABD BS NEURO INTAct laboratory and microbiology Laboratory Tests 07/10/24 04:56 Test 07/10/24 04:56 Range/Units Serum Glucose 94 74-106 mg/dL Problem List AFIB RVR Assessment/Plan cardioversion after adequate amiodarone loading Plan discussed with: Patient JEROD LARSEN MD Jul 10, 2024 08:01
--- NOTE | 2024-07-10 13:49 | DVHPN2 ---
Progress Note - Dictate Date Seen: Jul 10, 2024 Medical Necessity Reason Pt with a Central, PICC or Fol: No Subjective SEEN IN OFFICE AFIB RVR SYMPTOMATIC SENT TO ER vital signs Vital Sign Date Time Temp Pulse Resp B/P (MAP) Pulse Ox O2 Delivery O2 Flow Rate FiO2 07/10/24 13:16 98.0 112 16 133/92 (106) 97 98.0 07/10/24 08:00 Nasal Cannula* 3 32 Total Intake and Output 07/09/24 07/09/24 07/10/24 15:00 23:00 07:00 Intake Total 166.66 ml 133.32 ml 200 ml Balance 166.66 ml 133.32 ml 200 ml medications Current Medications Medications Dose Ordered Sig/Manuel Route Start Time Stop Time Status Last Admin Dose Admin Acetaminophen/ Hydrocodone Bitart 1 tab Q4HP PRN PO 07/09/24 17:00 Ondansetron HCl 4 mg Q4HP PRN IV 07/09/24 17:00 Docusate Sodium 100 mg BIDPRN PRN PO 07/09/24 17:00 Acetaminophen 650 mg Q6HP PRN PO 07/09/24 17:00 Nitroglycerin 0.4 mg Q5MINP PRN SL 07/09/24 17:00 Morphine Sulfate 2 mg Q30M PRN IV 07/09/24 17:00 Apixaban 5 mg BID PO 07/09/24 22:00 07/10/24 09:59 5 MG Metoprolol Succinate 50 mg BID PO 07/09/24 22:00 07/10/24 10:00 50 MG Tamsulosin HCl 0.4 mg BID PO 07/09/24 22:00 07/10/24 09:59 0.4 MG Methimazole 10 mg TID PO 07/09/24 22:00 07/10/24 05:54 10 MG Patient Own Medication 5 mg DAILY PO 07/10/24 10:00 Patient Own Medication 10 mg DAILY PO 07/10/24 10:00 objective PUL CLEAR CV RR ABD BS NEURO INTAct laboratory and microbiology Laboratory Tests 07/10/24 04:56 Test 07/10/24 04:56 Range/Units Serum Glucose 94 74-106 mg/dL Problem List AFIB RVR Assessment/Plan cardioversion after adequate amiodarone loading Plan discussed with: Patient JEROD LARSEN MD Jul 10, 2024 13:48
--- NOTE | 2024-07-10 14:13 | DVHPN2 ---
Subjective Patient reports having frequent bowel movements, anxiety, inability to sleep, as well as palpitations. Reviewed: Care Plan, H&P, Labs, Medications Changes from previous H/P or p: No Changes General: Per HPI Eyes: No Pain, No Vision change, No Conjunctivae inflammation, No Eyelid inflammation, No Other, No Redness ENT: No Ear pain, No Ear discharge, No Nose pain, No Nose discharge, No Nose congestion, No Mouth pain, No Mouth swelling, No Throat pain, No Throat swelling, No Other Cardiovascular: No Chest Pain; Palpitations; No Orthopnea, No Paroxysmal Noc. Dyspnea, No Edema, No Lt Headedness, No Other Respiratory: No Cough, No Dry; Shortness of breath, SOB with excertion; No Wheezing, No Hemoptysis, No Pleuritic Pain, No Sputum, No Other Gastrointestinal: No Nausea, No Vomiting, No Abdominal Pain, No Diarrhea, No Constipation, No Melena, No Hematochezia, No Other Genitourinary: No Dysuria, No Frequency, No Incontinence, No Hematuria, No Retention, No Other Musculoskeletal: No other, No neck pain, No shoulder pain, No arm pain, No back pain, No hand pain, No leg pain, No foot pain Skin: No Rash, No Lesions, No Jaundice, No Bruising, No Other Objective Vitals Vital Signs Date Time Temp Pulse Resp B/P (MAP) Pulse Ox O2 Delivery O2 Flow Rate FiO2 07/10/24 13:16 98.0 112 16 133/92 (106) 97 98.0 07/10/24 08:00 Nasal Cannula* 3 32 Intake/Output Intake and Output 07/10/24 07:00 Intake Total 499.98 ml Balance 499.98 ml Intake Oral 200 ml IV Total 299.98 ml General Appearance: Alert, Oriented X3, Cooperative, No acute distress HEENT: Atraumatic, PERRLA Lungs: Clear to auscultation, Normal air movement Cardiovascular: Normal S1, Normal S2, Other (AFib with RVR) Abdomen: Normal bowel sounds, Soft, No tenderness, No hepatospenomegaly Back: Flank Tenderness, Midline Tenderness Musculoskeletal: Normal sensory function, Normal motor function Neuro: Normal gait, Normal speech Psych/Mental Status: Mental status NL, Mood NL Medications Current Medications Medications Dose Ordered Sig/Manuel Route Start Time Stop Time Status Last Admin Dose Admin Acetaminophen/ Hydrocodone Bitart 1 tab Q4HP PRN PO 07/09/24 17:00 Ondansetron HCl 4 mg Q4HP PRN IV 07/09/24 17:00 Docusate Sodium 100 mg BIDPRN PRN PO 07/09/24 17:00 Acetaminophen 650 mg Q6HP PRN PO 07/09/24 17:00 Nitroglycerin 0.4 mg Q5MINP PRN SL 07/09/24 17:00 Morphine Sulfate 2 mg Q30M PRN IV 07/09/24 17:00 Apixaban 5 mg BID PO 07/09/24 22:00 07/10/24 09:59 5 MG Metoprolol Succinate 50 mg BID PO 07/09/24 22:00 07/10/24 10:00 50 MG Tamsulosin HCl 0.4 mg BID PO 07/09/24 22:00 07/10/24 09:59 0.4 MG Methimazole 10 mg TID PO 07/09/24 22:00 07/10/24 05:54 10 MG Patient Own Medication 5 mg DAILY PO 07/10/24 10:00 Patient Own Medication 10 mg DAILY PO 07/10/24 10:00 Laboratory Results Laboratory Tests 07/10/24 04:56 Chemistry Test 07/10/24 04:56 Albumin 3.7 g/dL (3.2-4.8) Calcium Level 9.1 mg/dL (8.7-10.4) Total Protein 6.4 g/dL (5.7-8.2) Lipid panel Test 07/10/24 04:56 Cholesterol Level 95 mg/dL (< 200) HDL Cholesterol 19 mg/dL (40-59) L Triglycerides Level 83 mg/dL (< 150) LFT Test 07/10/24 04:56 Alanine Aminotransferase (ALT) 17 U/L (7-40) Alkaline Phosphatase 72 U/L (46-116) Aspartate Amino Transferase (AST) 18 U/L (13-40) Total Bilirubin 0.8 mg/dL (0.2-1.0) HgA1c, TSH Test 07/10/24 04:56 Hemoglobin A1c 5.1 % A1C (<5.7) Thyroid Stimulating Hormone (TSH) 0.01 uIU/mL (0.55-4.78) L Labs and/or images reviewed: Labs reviewed by me, Image(s) reviewed by me Assessment/Plan Assessment/Plan Impression: -AFib with RVR -hyperthyroidism -BPH Plan: -cardiology consultation with Dr. Laura,? Plans for cardioversion -increase methimazole -continue amiodarone drip -continue rate control with beta latricia -TSH 0.01. Ordered thyroid panel -continue anticoagulation with Eliquis Total time spent with patient discussing and formulating plan of care: 35 minutes. This medical document was created using an electronic medical record system with [employer] dictation system. Although this document has been carefully reviewed, there may still be some phonetic and typographical errors. These areas are purely typographical due to imperfections of the software programs, and do not reflect any compromise in the patient's medical care. Plan discussed with: Patient, Other (RN) My Orders Orders - CATARINO FLORENCE NP Procedure Category Date Status Time Thyroid Panel LAB 07/10/24 Verified 13:48 Date of Service: Jul 10, 2024 Billing Provider: CATARINO FLORENCE NP Common Visit Codes: [id number] INP/OBS CARE(HIGH) CATARINO FLORENCE NP Jul 10, 2024 14:13
[2024-07-10] MEDS: methIMAzole 5 MG TAB PO SCH (14:20)
[2024-07-11] VITALS (17 sets, daily range): BP systolic 97–128; BP diastolic 67–88; PULSE 63–143; RESP 14–20; TEMP 97.4–98.7; O2SAT 92–97
[2024-07-11] MEDS: HYDROcodone-ACET 5/325MG TAB PO PRN (00:03)
--- NOTE | 2024-07-11 07:11 | ECG ---
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
[2024-07-11 08:07] LABS: Free Thyroxine Index >12.7 (1.2-4.9); T3 Uptake 51 % (24-39); Thyroxine (T4) >24.9 ug/dL (4.5-12.0)
[2024-07-11] MEDS: fentaNYL CITRATE 100 MCG/2 ML VL IV ONE (14:15)
[2024-07-11] MEDS: MIDAZOLAM HCL 2MG/2ML 2ml VIAL (1mg/ml) ONE ×2 (14:28)
[2024-07-11] MEDS: MIDAZOLAM HCL 2MG/2ML 2ml VIAL (1mg/ml) IV ONE (14:29)
--- NOTE | 2024-07-11 14:35 | DVHOP ---
DATE OF SURGERY: 07/11/2024 INDICATIONS: The patient admitted for atrial fibrillation with rapid ventricular response. He has severe hyperthyroidism. Tapazole has been increased to 5 mg t.i.d. The patient now will be titrated on the beta latricia to 100 mg b.i.d. of Toprol-XL. Cardioversion will be attempted. DESCRIPTION OF PROCEDURE: The patient was given adequate conscious sedation. Using a biphasic direct synchronized energy was delivered at 200 joules. The patient converted to sinus rhythm at 90. At this time, the patient is clinically stable. Mental status is within normal limits. At this time, no further workup is required. Once the patient is stable for the next 24 hours in sinus rhythm, the patient may be discharged home. I will titrate up on the Toprol-XL to 100 mg b.i.d. Valentín Melo MD SA/CAROL/COSME TID: [id number] RECEIPT: [id number]
[2024-07-11] MEDS: METOPROLOL SUCCINATE XL 50 MG TAB PO ONE ×2 (14:38)
--- NOTE | 2024-07-11 14:39 | DVHPN2 ---
Progress Note - Dictate Date Seen: Jul 11, 2024 Medical Necessity Reason Pt with a Central, PICC or Fol: No Medical Necessity Reason AFIB RVR SX OF CHEST PAIN PALPITATION HTN HYPERLIPIDEMIA S/P CARIOVERSION Subjective SEEN IN OFFICE AFIB RVR SYMPTOMATIC SENT TO ER vital signs Vital Sign Date Time Temp Pulse Resp B/P (MAP) Pulse Ox O2 Delivery O2 Flow Rate FiO2 07/11/24 13:00 97.6 63 17 118/68 (85) 96 97.6 07/11/24 08:10 Nasal Cannula* 3 32 Total Intake and Output 07/10/24 07/10/24 07/11/24 15:00 23:00 07:00 Intake Total 940 ml 250 ml Balance 940 ml 250 ml medications Current Medications Medications Dose Ordered Sig/Manuel Route Start Time Stop Time Status Last Admin Dose Admin Acetaminophen/ Hydrocodone Bitart 1 tab Q4HP PRN PO 07/09/24 17:00 07/11/24 00:03 1 TAB Ondansetron HCl 4 mg Q4HP PRN IV 07/09/24 17:00 Docusate Sodium 100 mg BIDPRN PRN PO 07/09/24 17:00 Acetaminophen 650 mg Q6HP PRN PO 07/09/24 17:00 Nitroglycerin 0.4 mg Q5MINP PRN SL 07/09/24 17:00 Morphine Sulfate 2 mg Q30M PRN IV 07/09/24 17:00 Apixaban 5 mg BID PO 07/09/24 22:00 07/11/24 09:22 5 MG Tamsulosin HCl 0.4 mg BID PO 07/09/24 22:00 07/11/24 09:22 0.4 MG Patient Own Medication 5 mg DAILY PO 07/10/24 10:00 Patient Own Medication 10 mg DAILY PO 07/10/24 10:00 Methimazole 15 mg TID PO 07/10/24 14:00 07/11/24 05:26 15 MG Metoprolol Succinate 100 mg BID PO 07/11/24 22:00 UNV objective PUL CLEAR CV RR ABD BS NEURO INTAct laboratory and microbiology Laboratory Tests 07/10/24 04:56 Test 07/10/24 04:56 Range/Units Serum Glucose 94 74-106 mg/dL Problem List AFIB RVR HYPERTENSION HYPERTHYROIDISM Assessment/Plan AFIB SECONDARY TO HYPERTHYROIDISM S/Pcardioversion after adequate amiodarone loading DC IN AM ON TOPROL XL TITRATE TO HR <80 Plan discussed with: Patient Critical Care Time(min): 35 JEROD LARSEN MD Jul 11, 2024 14:39
[2024-07-11] MEDS: AMIODARONE HCL 200 MG TAB PO ONE (15:35)
--- NOTE | 2024-07-11 15:47 | ECG ---
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
--- NOTE | 2024-07-11 18:43 | DVHPN2 ---
Subjective Patient denies any symptoms at this time. Reviewed: Care Plan, H&P, Labs, Medications Changes from previous H/P or p: No Changes General: Per HPI Eyes: No Pain, No Vision change, No Conjunctivae inflammation, No Eyelid inflammation, No Other, No Redness ENT: No Ear pain, No Ear discharge, No Nose pain, No Nose discharge, No Nose congestion, No Mouth pain, No Mouth swelling, No Throat pain, No Throat swelling, No Other Cardiovascular: No Chest Pain; Palpitations; No Orthopnea, No Paroxysmal Noc. Dyspnea, No Edema, No Lt Headedness, No Other Respiratory: No Cough, No Dry; Shortness of breath, SOB with excertion; No Wheezing, No Hemoptysis, No Pleuritic Pain, No Sputum, No Other Gastrointestinal: No Nausea, No Vomiting, No Abdominal Pain, No Diarrhea, No Constipation, No Melena, No Hematochezia, No Other Genitourinary: No Dysuria, No Frequency, No Incontinence, No Hematuria, No Retention, No Other Musculoskeletal: No other, No neck pain, No shoulder pain, No arm pain, No back pain, No hand pain, No leg pain, No foot pain Skin: No Rash, No Lesions, No Jaundice, No Bruising, No Other Objective Vitals Vital Signs Date Time Temp Pulse Resp B/P (MAP) Pulse Ox O2 Delivery O2 Flow Rate FiO2 07/11/24 17:05 98.2 89 18 127/83 (98) 95 98.2 07/11/24 08:10 Nasal Cannula* 3 32 Intake/Output Intake and Output 07/11/24 07:00 Intake Total 1190 ml Balance 1190 ml Intake Oral 1190 ml # Voids 7 General Appearance: Alert, Oriented X3, Cooperative, No acute distress HEENT: Atraumatic, PERRLA Lungs: Clear to auscultation, Normal air movement Cardiovascular: Normal S1, Normal S2, Other (AFib with RVR) Abdomen: Normal bowel sounds, Soft, No tenderness, No hepatospenomegaly Back: Flank Tenderness, Midline Tenderness Musculoskeletal: Normal sensory function, Normal motor function Neuro: Normal gait, Normal speech Psych/Mental Status: Mental status NL, Mood NL Medications Current Medications Medications Dose Ordered Sig/Manuel Route Start Time Stop Time Status Last Admin Dose Admin Acetaminophen/ Hydrocodone Bitart 1 tab Q4HP PRN PO 07/09/24 17:00 4/4/25 00:03 1 TAB Ondansetron HCl 4 mg Q4HP PRN IV 07/09/24 17:00 Docusate Sodium 100 mg BIDPRN PRN PO 07/09/24 17:00 Acetaminophen 650 mg Q6HP PRN PO 07/09/24 17:00 Nitroglycerin 0.4 mg Q5MINP PRN SL 07/09/24 17:00 Morphine Sulfate 2 mg Q30M PRN IV 07/09/24 17:00 Apixaban 5 mg BID PO 07/09/24 22:00 07/11/24 09:22 5 MG Tamsulosin HCl 0.4 mg BID PO 07/09/24 22:00 07/11/24 09:22 0.4 MG Patient Own Medication 5 mg DAILY PO 07/10/24 10:00 Patient Own Medication 10 mg DAILY PO 07/10/24 10:00 Methimazole 15 mg TID PO 07/10/24 14:00 07/11/24 15:38 15 MG Metoprolol Succinate 100 mg BID PO 07/11/24 22:00 Amiodarone HCl 400 mg DAILY PO 07/12/24 10:00 Laboratory Results Laboratory Tests 07/10/24 04:56 Labs and/or images reviewed: Labs reviewed by me, Image(s) reviewed by me Assessment/Plan Assessment/Plan Impression: -AFib with RVR -hyperthyroidism -BPH Plan: Events: Patient did not have cardioversion yesterday. Had cardioversion today. Now in sinus rhythm. Amiodarone drip to be stopped. Continue with Toprol-XL. Thyroid panel reveals severe hypothyroidism. -increase methimazole -continue amiodarone drip -continue rate control with beta latricia -continue anticoagulation with Eliquis -reassess for discharge in a.m. Total time spent with patient discussing and formulating plan of care: 35 minutes. This medical document was created using an electronic medical record system with [employer] system. Although this document has been carefully reviewed, there may still be some phonetic and typographical errors. These areas are purely typographical due to imperfections of the software programs, and do not reflect any compromise in the patient's medical care. Plan discussed with: Patient, Other (RN) Date of Service: Jul 11, 2024 Billing Provider: CATARINO FLORENCE NP Common Visit Codes: [id number] INP/OBS CARE(HIGH) CATARINO FLORENCE NP Jul 11, 2024 18:43
--- NOTE | 2024-07-11 19:55 | DVH ---
ULTRASOUND SOFT TISSUE HEAD AND NECK CLINICAL INDICATION: Hyperthyroidism TECHNIQUE: Multiple real time sonographic images of the thyroid were obtained. COMPARISON: Prior exam dated none FINDINGS: RIGHT LOBE OF THE THYROID: Measures 3.68 x 2 x 1.75 cm. Parenchyma appears heterogeneous LEFT LOBE OF THE THYROID: Measures approximately 3.87 x 1.96 x 1.98 cm. Parenchyma appears heterogeneous ISTHMUS: Measures 0.65 cm. IMPRESSION: 1. 3.68 cm long right lobe of the thyroid. 3.87 cm long left lobe of the thyroid. 2. Thyroid parenchyma is heterogeneous. 3. There are no thyroid masses nodules or cysts. [employer] TI-RADS Categories and Recommendations (2017): TR1: 0 points, Benign, No FNA TR2: 2 points, Not suspicious, No FNA TR3: 3 points, Mildly suspicious, FNA if > or = 2.5 cm, Follow if > or = 1.5 cm TR4: 4-6 points, Moderately Suspicious, FNA if > or = 1.5 cm, Follow if > or = 1.0 cm TR5: 7+ points, Highly Suspicious, FNA if > or = 1.0 cm, Follow if > or = 0.5 cm Follow-up ultrasound guidelines: TR5: yearly for 5 years, if no growth or change in TI-RADS level TR4: at 1, 2, 3 and 5 years, if no growth or change in TI-RADS level TR3: at 1, 3 and 5 years, if no growth or change in TI-RADS level If increased but below threshold for FNA, repeat in one year. Source: ACR Thyroid Imaging, Reporting and Data System (TI-RADS): White Paper of the ACR TI-RADS Committee. Esau et al., J Am Kristy Radiol 2017;14:587-595.
[2024-07-11] MEDS: METOPROLOL SUCCINATE XL 50 MG TAB PO SCH (21:46)
[2024-07-12 01:00] VITALS: BP 134/85; PULSE 84; RESP 14; TEMP 98.1; O2SAT 91
[2024-07-12 05:00] VITALS: BP 122/78; PULSE 75; RESP 16; TEMP 97.2; O2SAT 97
[2024-07-12 08:00] VITALS: PULSE 68; PULSE 72; RESP 17; O2SAT 95
[2024-07-12 08:38] VITALS: BP 107/58; PULSE 72; RESP 17; TEMP 98; O2SAT 95
[2024-07-12] MEDS: AMIODARONE HCL 200 MG TAB PO SCH (09:29)
[2024-07-12] MEDS ORDERED: METH-552 PO (11:22)
[2024-07-12] MEDS ORDERED: METO-6 PO (11:22)
--- NOTE | 2024-07-12 11:27 | DVHDS2 ---
Discharge Summary Date of Admission Jul 09, 2024 at 17:00 Date of Discharge: Jul 12, 2024 Admitting Diagnosis Atrial fibrillation with rapid ventricular Labs/Diagnostic Data: Laboratory Results Test 07/10/24 04:56 07/09/24 14:00 07/09/24 10:40 White Blood Count 6.4 10^3/uL (4.4-10.8) Red Blood Count 5.20 10^6/uL (4.5-5.90) Hemoglobin 15.9 g/dL (13.5-17.5) Hematocrit 46.8 % (41.0-53.0) Mean Corpuscular Volume 90.0 fL (80.0-100.0) Mean Corpuscular Hemoglobin 30.5 pg (28.0-32.0) Mean Corpuscular Hemoglobin Concent 33.9 g/dL (32.0-36.0) Red Cell Distribution Width 13.2 % (11.8-14.3) Platelet Count 171 10^3/uL (140-450) Mean Platelet Volume 10.3 fL (6.9-10.8) Neutrophils (%) (Auto) 66.4 % (37.0-80.0) Lymphocytes (%) (Auto) 23.0 % (10.0-50.0) Monocytes (%) (Auto) 8.6 % (0.0-12.0) Eosinophils (%) (Auto) 1.0 % (0.0-7.0) Basophils (%) (Auto) 1.0 % (0.0-2.0) Neutrophils # (Auto) 4.2 10 ^3/uL (1.6-8.6) Lymphocytes # (Auto) 1.5 10 ^3/uL (0.4-5.4) Monocytes # (Auto) 0.6 10 ^3/uL (0-1.3) Eosinophils # (Auto) 0.1 10 ^3/uL (0-0.8) Basophils # (Auto) 0.1 10 ^3/uL (0-0.2) Nucleated Red Blood Cells 0.0 % Sodium Level 139 mmol/L (136-145) Potassium Level 3.7 mmol/L (3.5-5.1) Chloride Level 107 mmol/L (98-107) Carbon Dioxide Level 21 mmol/L (20-31) Anion Gap 11 (5-15) Blood Urea Nitrogen 11 mg/dL (9-23) Creatinine 1.00 mg/dL (0.700-1.30) Glomerular Filtration Rate Calc 84 mL/min (>90) BUN/Creatinine Ratio 11.0 (10.0-20.0) Serum Glucose 94 mg/dL (74-106) Hemoglobin A1c 5.1 % A1C (<5.7) Calcium Level 9.1 mg/dL (8.7-10.4) Total Bilirubin 0.8 mg/dL (0.2-1.0) Aspartate Amino Transferase (AST) 18 U/L (13-40) Alanine Aminotransferase (ALT) 17 U/L (7-40) Alkaline Phosphatase 72 U/L (46-116) Total Protein 6.4 g/dL (5.7-8.2) Albumin 3.7 g/dL (3.2-4.8) Triglycerides Level 83 mg/dL (< 150) Cholesterol Level 95 mg/dL (< 200) LDL Cholesterol 66 mg/dL (< 100) HDL Cholesterol 19 mg/dL (40-59) Thyroid Stimulating Hormone (TSH) 0.01 uIU/mL (0.55-4.78) Free Thyroxine Index >12.7 (1.2-4.9) Thyroxine (T4) >24.9 ug/dL (4.5-12.0) Triiodothyronine (T3) Uptake 51 % (24-39) Troponin I High Sensitivity 13 ng/L (</=54) Lactic Acid Level 1.6 mmol/L (0.4-2.0) B-Type Natriuretic Peptide 456.32 pg/mL (0-100) Other Laboratory Tests 07/10/24 04:56 Brief Hx & Hospital Course: History of Present Illness Mykel Jackson JR is a 63-year-old male with past medical history of hypertension, atrial fibrillation, BPH, and hyperthyroidism, who came in for dizziness and shortness of breath. Patient states he has had atrial fibrillation since 2011. He states he had a cardioversion a few years ago and was doing very well with it, until about 1 month ago. He states that for about 1 month he has been noticing palpitations, shortness of breath at rest and worse with activity, as well as dizziness. He follows with Dr. Hardy for cardiology. He called Dr. Laura and had an appointment today for an ECHO. During the ECHO his heart rate ws significantly elevated. They stopped the ECHO did an EKG that showed atrial fibrillation with RVR and sent him to the hospital for treatment. IV metoprolol was given, without any response. IV amiodarone bolus followed by drip was started. On assessment, patient remains in atrial fibrillation with rate about 130s. Patient will be admitted to telemetry with cardiology consult. Course of hospitalization: Patient was started on amiodarone drip. Patient continued to have refractory ventricular rate despite beta-latricia therapy and amiodarone drip. Patient had cardiology consultation, underwent cardioversion yesterday. Successful, with the patient now in sinus rhythm. Patient was continued on his outpatient anticoagulation with Eliquis. Thyroid panel was ordered with the patient found to be in severe hyperthyroidism. Methimazole was increased to 50 mg p.o. t.i.d.. Thyroid ultrasound was performed. Unremarkable. Patient has been cleared for discharge by Cardiology, for which she will follow up with him in one week. Recommend repeating TSH as outpatient. All questions answered. Physical examination General: Alert and Oriented x3. No acute distress. Well-nourished. Eyes: EOMI. Anicteric. HENT: Moist mucous membranes. Lungs: Clear to auscultation bilaterally. No accessory muscle use. Cardiovascular: Regular rate and rhythm. No murmur. No JVD. Abdomen: Soft, non-tender and non-distended. No palpable masses. Extremities: No edema. Non-tender. Skin: No rashes or lesions. Warm. Neurologic: No focal neurological deficits. CN II-XII grossly intact, but not individually tested. Psychiatric: Cooperative. Appropriate mood and affect. Total time spent with patient discussing and formulating plan of care: 35 minutes. This medical document was created using an electronic medical record system with [employer] dictation system. Although this document has been carefully reviewed, there may still be some phonetic and typographical errors. These areas are purely typographical due to imperfections of the software programs, and do not reflect any compromise in the patient's medical care. Condition at Discharge: Fair Final Diagnosis/Problems List Atrial fibrillation with rapid ventricular rate Secondary diagnosis: -AFib with RVR -hyperthyroidism -BPH Discharge Disposition: Home Discharge Instruct/Medications Diet: Cardiac 2g Na,low cholest Activity: No Restrictions, As Tolerated Follow Up/Referral: Follow up with Dr. Laura in 1 -2 weeks Medications: Methimazole 15 mg p.o. t.i.d. Toprol-XL 100 mg p.o. daily Eliquis 5 mg p.o. b.i.d. 36 Discharge Statement: "Patient was advised to return to the ER or call 911 if any headaches, dizziness, shortness of breath, chest pain, abdominal pain, bleeding, fevers, or worsening of medical condition. Patient was counseled about treatment plan, medications, possible side effects, patientverbalized understanding. All questions were answered to the best of my ability. This discharge took greater then 30 minutes in planning, reviewing documentation, counseling the patient, and discussing with other team members." ASSESSMENT ASSESSMENT Assessment Atrial fibrillation with rapid ventricular rate Date of Service: Jul 12, 2024 Billing Provider: CATARINO FLORENCE NP Common Visit Codes: [id number] CARE 30-74 MIN CATARINO FLORENCE NP Jul 12, 2024 11:27
[2024-07-12 12:17] VITALS: BP 123/83; PULSE 81; RESP 19; TEMP 98; O2SAT 100
[2024-07-12 12:41] VITALS: BP 123/83; PULSE 81; RESP 19; TEMP 98; O2SAT 100
== END 2024-07-12 13:18 | disposition home or self-care (01) | DRG 310 ==
LOC: ER 09:43 → OVERFLOW 17:00 → TELE-WESTW 22:10
PROVIDERS: ADMIT Nurse Practitioner Acute Care; ATTEND Nurse Practitioner Acute Care
PROC: 5A2204Z Restoration of Cardiac Rhythm, Single (ICD-10-PCS; principal; 2024-07-09)
DX: I48.91 Unspecified atrial fibrillation (principal); I10 Essential (primary) hypertension; N40.0 Benign prostatic hyperplasia without lower urinary tract symptoms; E05.90 Thyrotoxicosis, unspecified without thyrotoxic crisis or storm; Z79.899 Other long term (current) drug therapy
CPT/HCPCS: 36415; 71045; 76536; 80048; 80053; 80061; 83036; 83605; 83880; 84443; 84484; 85025; 92960; 93005; 96361; 96365; 96375; 99291; G0378; J2250

== ENCOUNTER 2024-09-08 08:03 | Outpatient (CLI) | payer OTHER ==
[~2024-09-08 08:03] MED LIST changes: -TRIA37.587 PO
== END 2024-09-08 17:00 | disposition home or self-care (01) ==
LOC: Rad HDHVI 08:03
PROVIDERS: ATTEND Internal Medicine Cardiovascular Disease
DX: I34.0 Nonrheumatic mitral (valve) insufficiency (principal)
CPT/HCPCS: 93306

== ENCOUNTER 2024-10-11 14:03 | Emergency (ER) | payer SELFPAY ==
[~2024-10-11] VITALS: Ht 180.3 cm; Wt 105.6 kg
--- NOTE | 2024-10-11 15:26 | ED.PDOC ---
History of Present Illness HPI Comments 63-year-old male presents with a chief complaint of testicle pain and swelling x 2 days. Patient mentions that his testicles are hard and are painful to the touch. Patient mentions that he was lying down on the floor and when he stood up he felt a pain in his testicles. Patient mentions that this is the first time that this has happened to him. Patient denies any urinary symptoms at this time and is able to urinate. Chief Complaint: Testicle Pain Time Seen by MD: 15:04 Primary Care Provider: prakash Harris Notes: Medications, Allergies Allergies: Coded Allergies: NO KNOWN ALLERGIES (Unverified , 04/21/19) Home Meds Active Scripts Sulfamethoxazole W/Trimethopri (Bactrim Ds Tablet) 1 Tab Tb, 1 TAB PO BID for 7 Days, #14 TAB Prov:JUAN J VIZCARRA MD 10/11/24 Clindamycin Hcl (Clindamycin Hcl) 300 Mg Cap, 1 CAP PO TID for 7 Days, #21 CAP Prov:JUAN J VIZCARRA MD 10/11/24 Methimazole (Methimazole) 10 Mg Tab, 15 MG PO TID for 30 Days, #135 TAB Prov:CATARINO FLORENCE [employer] 07/12/24 Metoprolol Succinate (Toprol Xl) 50 Mg Tab, 100 MG PO DAILY for 30 Days, #60 TAB 1 Refill Prov:CATARINO FLORENCE [employer] 07/12/24 Reported Medications Tadalafil (Cialis) 5 Mg Tab, 5 MG PO DAILY, TAB 04/21/19 Vortioxetine Hydrobromide (Trintellix) 10 Mg Tab, 10 MG PO DAILY for DEPRESSION, TAB 04/21/19 Apixaban Base (ELIQUIS) 5 Mg Tab, 5 MG PO BID for BLOOD THINNER, TAB 04/21/19 Tamsulosin Hcl (Flomax) 0.4 Mg Cap, 0.4 MG PO BID, CAP 04/21/19 Information Source: Patient Mode of Arrival: Ambulatory Severity: Moderate Timing: Days Duration: Since onset Prehospital treatment: None Past Medical History PAST MEDICAL HISTORY: AFIB, HTN, Thyroid Surgical History: Denies all surgeries Family History Family History: Reviewed,noncontributory to illness Social History Smoker: Non-Smoker Alcohol: Denies ETOH Use Drugs: Denies Drug Use Lives In: Home Constitutional: denies: chills, diaphoresis, fatigue, fever, malaise, sweats, weakness, others EENTM: denies: blurred vision, double vision, ear bleeding, ear discharge, ear drainage, ear pain, ear ringing, eye pain, eye redness, hearing loss, mouth pain, mouth swelling, nasal discharge, nose bleeding, nose congestion, nose pain, photophobia, tearing, throat pain, throat swelling, voice changes, others Respiratory: denies: cough, hemoptysis, orthopnea, SOB at rest, shortness of breath, SOB with excertion, stridor, wheezing, others Cardiovascular: denies: chest pain, dizzy spells, diaphoresis, Dyspnea on exertion, edema, irregular heart beat, left arm pain, lightheadedness, palpitations, PND, syncope, others Gastrointestinal: denies: abdomen distended, abdominal pain, blood streaked bowels, constipated, diarrhea, dysphagia, difficulty swallowing, hematemesis, melena, nausea, poor appetite, poor fluid intake, rectal bleeding, rectal pain, vomiting, others Genitourinary: reports: testicle pain; denies: burning, dysuria, flank pain, frequency, hematuria, incontinence, penile discharge, penile sore, pain, testicle swelling, urgency, others Neurological: denies: dizziness, fainting, headache, left sided numbness, left sided weakness, numbness, paresthesia, pre-existing deficit, right sided numbness, right sided weakness, seizure, speech problems, tingling, tremors, weakness, others Musculoskeletal: denies: back pain, gout, joint pain, joint swelling, muscle pain, muscle stiffness, neck pain, others Integumetry: denies: bruises, change in color, change in hair/nails, dryness, laceration, lesions, lumps, rash, wounds, others Allergic/Immunocompromised: denies: Difficulty Healing, Frequent Infections, Hives, Itching, others Hematologic/Lymphatic: denies: anemia, blood clots, easy bleeding, easy bruising, swollen glands, others Endocrine: denies: excessive hunger, excessive sweating, excessive thirst, excessive urination, flushing, intolerance to cold, intolerance to heat, unexplained weight gain, unexplained weight loss, others Psychiatric: denies: anxiety, bipolar disorder, depression, hopeless, panic disorder, schizophrenia, sleepless, suicidal, others All Other Systems: Reviewed and Negative Physical Exam General Appearance: Moderate Distress, Normal HEENT: Normal ENT Inspection, Pharynx Normal, TMs Normal Neck: Full Range of Motion, Non-Tender, Normal, Normal Inspection Respiratory: Chest Non-Tender, Lungs Clear, No Accessory Muscle Use, No Respiratory Distress, Normal Breath Sounds Cardiovascular: No Edema, No JVD, No Murmur, No Gallop, Normal Peripheral Pulses, Regular Rate/Rhythm Breast Exam: Deferred Gastrointestinal: No Organomegaly, Non Tender, No Pulsatile Mass, Normal Bowel Sounds, Soft Genitalia: Deferred Pelvic: Deferred Rectal: Deferred Extremities: No calf tenderness, Normal capillary refill, Normal inspection, Normal range of motion, Non-tender, No pedal edema Musculoskeletal : Apperance: Normal Neurologic: Alert, box tender II-XII nml as Tested, No Motor Deficits, Normal Affect, Normal Mood, No Sensory Deficits Cerebellar Function: Normal Reflexes: Normal Skin: Dry, Normal Color, Warm Peripheral Pulses: 3+ Radial (R), 3+ Radial (L) Lymphatic: No Adenopathy Was a procedure done? Was a procedure done?: No Differential Dx Considerations may include: Epididymitis Hydrocele X-Ray, Labs, Meds, VS Vital Signs Date Time Temp Pulse Resp B/P (MAP) Pulse Ox O2 Delivery O2 Flow Rate FiO2 10/11/24 16:11 98.3 90 18 144/93 (110) 95 98.3 10/11/24 16:11 90 18 95 Room Air 10/11/24 15:29 97.1 105 17 126/75 (92) 95 97.1 Lab Test 10/11/24 16:00 Range/Units Urine Color Yellow Yellow Urine Clarity Clear Clear Urine pH 5.5 5.0-9.0 Urine Specific [place] 1.029 1.001-1.035 Urine Protein 1+ H Negative Urine Ketones Trace Negative Urine Blood 1+ H Negative /uL Urine Nitrite 2+ H Negative Urine Bilirubin Negative Negative Urine Urobilinogen 2 H Negative mg/dL Urine Leukocyte Esterase 1+ Negative /uL Urine RBC 4 0 - 3 /hpf Urine Microscopic WBC 27 H 0-3 /HPF Urine Squamous Epithelial Cells Few <5 /hpf Urine Bacteria Many H None Seen /hpf Urine Mucus Few None Seen Urine Glucose Normal Normal mg/dL Current Medications Medications (Trade) Dose Ordered Sig/Manuel Route Start Time Stop Time Status Last Admin Ketorolac Tromethamine (Toradol Injection) 60 mg ONCE ONCE IM 10/11/24 15:30 10/11/24 15:31 DC 10/11/24 16:07 Patient alert. Vitals stable. Complaining of testicular swelling. Answering all questions. Ambulating. Ultrasound reviewed does show epididymitis. UA shows UTI. Was given prescription of Bactrim clindamycin antibiotic. Explained to the patient. Was told to follow up with his primary care physician. Was told to come back if there is any problem. Time of 1ST Reevaluation: 15:34 Reevaluation 1ST: Unchanged Patient Education/Counseling: Diagnosis, Treatment, Need For Follow Up Family Education/Counseling: No Family Present SEPSIS Sepsis Screen Physician Orders Testicular Ultrasound (10/11/24 15:16) Vital Signs Date Time Temp Pulse Resp B/P (MAP) Pulse Ox O2 Delivery O2 Flow Rate FiO2 10/11/24 16:11 98.3 90 18 144/93 (110) 95 98.3 10/11/24 16:11 90 18 95 Room Air 10/11/24 15:29 97.1 105 17 126/75 (92) 95 97.1 Medications Medications Dose Ordered Sig/Manuel Route Start Time Stop Time Status Last Admin Dose Admin Ketorolac Tromethamine 60 mg ONCE ONCE IM 10/11/24 15:30 10/11/24 15:31 DC 10/11/24 16:07 Departure 1 Departure Time of Disposition: 15:30 Impression: Primary Impression: Epididymitis Disposition: 01 HOME / SELF CARE / HOMELESS Condition: Good e-Prescriptions Sulfamethoxazole W/Trimethopri (Bactrim Ds Tablet) 1 Tab Tb 1 TAB PO BID for 7 Days, #14 TAB Prov: JUAN J VIZCARRA MD 10/11/24 Clindamycin Hcl (Clindamycin Hcl) 300 Mg Cap 1 CAP PO TID for 7 Days, #21 CAP Prov: JUAN J VIZCARRA MD 10/11/24 Discharged With: Self Critical Care Note Critical Care Time?: No Stability Stability form required: No Heart Score Heart Score: Heart Score Response (Comments) Value History N/A 0 EKG N/A 0 Age N/A 0 Risk Factors N/A 0 Troponin N/A 0 Total 0 I personally scribed for JUAN J VIZCARRA MD ([email or web address]) on 10/11/24 at 15:25. Electronically submitted by Kwadwo Moore ([email or web address]). JUAN J VIZCRARA MD Oct 11, 2024 15:25
[2024-10-11] MEDS: KETOROLAC TROMETH 60MG/2ML VIAL IM ONE (16:07)
[2024-10-11 16:11] VITALS: BP 144/93; PULSE 90; RESP 18; TEMP 98.3; O2SAT 95
[2024-10-11 16:17] LABS: Urine Protein, UAD 1+ (Negative)
--- NOTE | 2024-10-11 16:33 | DVH ---
CLINICAL INFORMATION: Rule out testicular torsion. TECHNIQUE: Grayscale sonographic imaging of the testicles and scrotal contents was performed , carlos paige by color doppler technique. Duplex doppler ultrasound of both testicles was performed. COMPARISON: None FINDINGS: The right testicle measures 4.5 x 3.6 x 3.1 cm, within normal limits. Unremarkable echogenicity of th e right testicle. There is increased vascular flow in the right testicle compared to the left. Enla rged and heterogeneous epididymis with increased vascular flow. Right epididymal cysts measure up to 0.4 cm. Small to moderate hydrocele. No varicocele demonstrated. The left testicle measures 4.4 x 2.3 x 3.0 cm, within normal limits. Unremarkable echogenicity of the left testicle. Arterial and venous blood flow demonstrated. Heterogeneous enlarged left epididymis with increased vascular flow. Epididymal cyst measures up to 0.3 cm. Small to moderate hydrocele. No varicocele. IMPRESSION: 1. Findings consistent with bilateral epididymitis and right orchitis in the appropriate clinical set ting. 2. Bilateral hydroceles. 3. No sonographic evidence of testicular torsion. 4. Bilateral epididymal cysts. 5. Additional findings as described above.
[2024-10-11] MEDS ORDERED: CLIN1CAP70 PO (16:46)
[2024-10-11] MEDS ORDERED: AMOX500T3 PO (16:46)
[2024-10-11] MEDS ORDERED: BACDST PO (16:57)
== END 2024-10-11 17:16 | disposition home or self-care (01) ==
LOC: ER 14:03
DX: N45.1 Epididymitis (principal); I10 Essential (primary) hypertension; I48.91 Unspecified atrial fibrillation; Z79.899 Other long term (current) drug therapy
CPT/HCPCS: 76870; 81001; 96372; 99285; J1885